=== PATIENT | female | born 1965 | race Caucasian/White ===

== ENCOUNTER 2018-07-11 12:21 | Outpatient (REF) | payer OTHER, SELFPAY ==
[2018-07-11 14:07] LABS: Abs Immature Grans 0.02 k/cumm (0.0-0.09); Absolute Basophil Count 0.03 k/cumm (0.0-0.2); Absolute Eosinophil Count 0.16 k/cumm (0.0-0.7); Absolute Lymphocyte Count 1.92 k/cumm (1.2-3.4); Absolute Monocyte Count 0.57 k/cumm (0.11-0.7); Absolute Neutrophil Count 5.02 k/cumm (1.2-6.7); Basophils % 0.4; Eosinophils % 2.1; HCT 41.5 % (36.0-46.0); HGB 13.4 g/dL (12.0-15.5); Immature Grans % 0.3; Lymphocytes % 24.9; Mean Corp. HGB Concentration 32.3 g/dL (32.0-36.0); Mean Corpuscular Hemoglobin 28.9 pg (27.0-33.0); Mean Corpuscular Volume 89.4 fL (80-95); Mean Platelet Volume 11.3 fL (8.0-11.0); Monocytes % 7.4; Neutrophils % 64.9; Platelet Count 235 x1000/uL (130-400); RBC 4.64 m/cumm (4.00-5.20); RBC Distribution Width 13.7 % (11.7-14.6); White Blood Cell Count 7.72 k/cumm (4.4-10.8)
[2018-07-11 14:14] LABS: Mono Screening Negative (Negative)
== END 2018-07-11 12:41 ==
LOC: NCHCN 12:21
PROVIDERS: PCP Family Medicine; Visit Provider Family Medicine
DX: R53.83 Other fatigue (principal); R05 Cough
CPT/HCPCS: 85025; 86308

== ENCOUNTER 2018-10-06 09:22 | Outpatient (CLI) | payer OTHER, SELFPAY ==
--- NOTE | 2018-10-06 16:47 | DI.RAD_ITS ---
SYMPTOM/DIAGNOSIS: COUGH, R05 PA AND LATERAL CHEST: The heart is normal in size. The lungs are clear. The mediastinal structures and pleura appear intact. CONCLUSION: Normal chest.
== END 2018-10-06 09:42 ==
PROVIDERS: PCP Family Medicine; Visit Provider Family Medicine
DX: R05 Cough (principal)
CPT/HCPCS: 71046

== ENCOUNTER 2018-10-06 16:31 | Outpatient (REF) | payer OTHER, SELFPAY ==
[2018-10-06 19:15] LABS: HCT 39.3 % (36.0-46.0); HGB 12.9 g/dL (12.0-15.5); Mean Corp. HGB Concentration 32.8 g/dL (32.0-36.0); Mean Corpuscular Hemoglobin 29.1 pg (27.0-33.0); Mean Corpuscular Volume 88.5 fL (80-95); Mean Platelet Volume 12.1 fL (8.0-11.0); Platelet Count 224 x1000/uL (130-400); RBC 4.44 m/cumm (4.00-5.20); RBC Distribution Width 13.3 % (11.7-14.6); White Blood Cell Count 8.21 k/cumm (4.4-10.8)
[2018-10-06 20:36] LABS: ALT 20 U/L (12-78); AST 15 U/L (15-37); Albumin 3.7 g/dL (3.4-5.0); Alkaline Phosphatase 75 U/L (46-116); Anion Gap 8.6 mmol/L (3-11); BUN 19 mg/dL (7-18); Bilirubin, Total 0.3 mg/dL (0.2-1.0); CO2 30.4 mmol/L (21.0-32.0); CREATININE 1.09 mg/dL (0.55-1.02); Chloride 101 mmol/L (98-107); Estimated GFR 52.31 (mL/min/1.73m2); Ferritin 68 ng/mL (8-388); Glucose 96 mg/dL (70-100); Potassium 3.8 mmol/L (3.5-5.1); Sodium 140 mmol/L (136-145); TSH (W/Ref FT4) 1.49 uIU/mL (0.358-3.74); Total Protein 7.1 g/dL (6.4-8.2); Vitamin B12 588 pg/mL (193-986)
== END 2018-10-06 16:51 ==
LOC: NCHCN 16:31
PROVIDERS: PCP Family Medicine; Visit Provider Family Medicine
DX: R53.83 Other fatigue (principal); Z00.00 Encounter for general adult medical examination without abnormal findings
CPT/HCPCS: 80053; 85027; 82607; 82728; 84443

== ENCOUNTER 2020-01-01 16:41 | Outpatient (REF) | payer OTHER, SELFPAY ==
[2020-01-01 18:14] LABS: Anion Gap 7.3 mmol/L (3-11); BUN 24 mg/dL (7-18); CO2 30.7 mmol/L (21.0-32.0); CREATININE 1.08 mg/dL (0.55-1.02); Chloride 101 mmol/L (98-107); Estimated GFR 52.67 (mL/min/1.73m2); Glucose 95 mg/dL (74-106); Potassium 4.1 mmol/L (3.5-5.1); Sodium 139 mmol/L (136-145)
== END 2020-01-01 17:01 ==
LOC: NCHCN 16:41
PROVIDERS: PCP Family Medicine; Visit Provider Family Medicine
DX: N18.3 Chronic kidney disease, stage 3 (moderate) (principal)
CPT/HCPCS: 80048

== ENCOUNTER 2020-01-26 08:11 | Outpatient (CLI) | payer OTHER, SELFPAY ==
--- NOTE | 2020-01-26 | DI.MAMMO_ITS ---
EXAM: MAMMO SCREENING CLINICAL HISTORY: SCREENING, [facility] CARE,Z00.00 TECHNIQUE: Mammograms were interpreted according to the usual protocol including computer analysis w [email or web address] system, tomosynthesis and C-view imaging. COMPARISON: FINDINGS: Breasts are of moderate density with fairly symmetrical distribution of fibroglandular tissue. No do minant mass or clumped microcalcification is seen. There is a nodular radiodensity of the medial ret roareolar left breast, unchanged from previous studies including October 2017. IMPRESSION: No specific evidence of malignancy at this time. Routine screening examinations are suggested yearly intervals in this age group according to the ACS ACR guidelines. BI-RADS Category 1 - Negative Breast Density - Category B - Scattered areas of fibroglandular density
== END 2020-01-26 08:31 ==
PROVIDERS: PCP Family Medicine; Visit Provider Family Medicine
DX: Z00.00 Encounter for general adult medical examination without abnormal findings (principal); Z12.31 Encounter for screening mammogram for malignant neoplasm of breast
CPT/HCPCS: 77063; 77067

== ENCOUNTER 2021-01-02 16:55 | Outpatient (REF) | payer OTHER, SELFPAY ==
--- NOTE | 2021-01-02 16:00 | PAPFT_PTH ---
PATIENT: Layla Isaac LOC: [facility]#:[id number] AGE/SX: 55/F ROOM: RE01/02/[address]: Beth Villegas : 1965 BED: DIS: 01/02/2021 SPEC #: [id number] RECD: 01/03/21 13:10 STATUS: MEL KUMAR #: [id number] MAVERICK: 01/02/21 16:[address]: Beth Villegas DEPT: [facility] Cytology RECD BY: Fabienne Dalton Tissues: 1 - CX/ENDOCX FOR PAP SMEARS Procedures: PAP THIN PREP/UVM Screening HPV DNA PROBE Comments: [id number]
[2021-01-02 20:36] LABS: BUN 22 mg/dL (7-18); CREATININE 1.1 mg/dL (0.55-1.02); Calcium 9.1 mg/dL (8.5-10.1); Chloride 103 mmol/L (98-107); Estimated GFR 51.38 (mL/min/1.73m2); Glucose 100 mg/dL (74-106); Potassium 4.3 mmol/L (3.5-5.1); Sodium 141 mmol/L (136-145)
== END 2021-01-02 16:56 | disposition home or self-care (01) ==
LOC: NCHCN 16:55
PROVIDERS: PCP Family Medicine; Visit Provider Family Medicine
DX: N18.30 Chronic kidney disease, stage 3 unspecified (principal); Z00.00 Encounter for general adult medical examination without abnormal findings; Z12.4 Encounter for screening for malignant neoplasm of cervix; Z11.51 Encounter for screening for human papillomavirus (HPV); Z01.419 Encounter for gynecological examination (general) (routine) without abnormal findings
CPT/HCPCS: 80048; 88142; 87624

== ENCOUNTER 2021-02-27 15:42 | Outpatient (CLI) | payer OTHER, SELFPAY ==
--- NOTE | 2021-02-27 15:15 | DI.RAD_ITS ---
Exam(s) XR ELBOW RT LIMITED EXAM: XR ELBOW RT LIMITED CLINICAL HISTORY: right elbow pain. TECHNIQUE: 2D digital imaging was performed. COMPARISON: No exams were available for comparison FINDINGS: There is no evidence of fracture or elbow joint effusion and no swelling of the olecranon bursa. The re is some soft tissue swelling dorsally in the proximal forearm but no fractures evident. Radial he ad appears unremarkable as does the capitellum and trochlea. Epicondyles appear unremarkable. Bone density normal. IMPRESSION: DATA REPOSITORY: RADIATION DOSE DELIVERED:
== END 2021-02-27 15:43 | disposition home or self-care (01) ==
LOC: DIORS 15:42
PROVIDERS: PCP Family Medicine; Referring Provider Family Medicine; Visit Provider Physician Assistant
DX: M25.521 Pain in right elbow (principal); M79.89 Other specified soft tissue disorders
CPT/HCPCS: 73070

== ENCOUNTER 2021-08-23 10:38 | Outpatient (REF) | payer BC, SELFPAY ==
[2021-08-23 14:37] LABS: HGB 13.2 g/dL (11.2-15.7); MCH 28.4 pg (27.0-33.0); MCHC 31.4 % (32.0-36.0); MCV 90.5 fL (80-95); Platelet Count 244 10^3/uL (130-400); RBC 4.64 10^6/uL (3.93-5.22); RDW 13.2 % (11.7-14.6); RDW-SD 43.3 fL; WBC 7.27 10^3/uL (4.4-10.8)
[2021-08-23 15:19] LABS: ALT 19 U/L (14-59); AST 15 U/L (15-37); Albumin 3.8 g/dL (3.4-5.0); Alkaline Phosphatase 78 U/L (46-116); BUN 17 mg/dL (7-18); Bilirubin, Total 0.3 mg/dL (0.2-1.0); Calcium 8.9 mg/dL (8.5-10.1); Chloride 104 mmol/L (98-107); Estimated GFR 57.15 (mL/min/1.73m2); Glucose 95 mg/dL (74-106); Potassium 4.2 mmol/L (3.5-5.1); Sodium 142 mmol/L (136-145); TSH (W/Ref FT4) 0.99 uIU/mL (0.36-3.74); Total Protein 7.2 g/dL (6.4-8.2)
== END 2021-08-23 10:39 | disposition home or self-care (01) ==
LOC: NCHCN 10:38
PROVIDERS: PCP Family Medicine; Visit Provider Family Medicine
DX: R53.83 Other fatigue (principal)
CPT/HCPCS: 80053; 85027; 84443

== ENCOUNTER 2021-09-12 00:14 | Outpatient (CLI) | payer BC, SELFPAY ==
--- NOTE | 2021-09-12 07:30 | DI.US_ITS ---
APPROVED REPORT EXAM: Comprehensive 2D, Doppler, and color-flow Echocardiogram Patient Location: Out-Patient Machine Joint Cutter: Inocencia Amado RDCS (AE) Indications: VO, Chronic Cough Other Information Study Quality: Good Conclusion Normal left ventricular wall thickness and chamber size. Estimated ejection fraction is 60%. Wall m otion is normal Normal right ventricular size and systolic function Both atria are normal in size There is no structural or hemodynamically significant valvular disease Estimated right ventricular systolic pressure is 39 mmHg Wall motion Left Ventricle The left ventricle is normal size. The left ventricular systolic function is normal. The left ventric ular ejection fraction is within the normal range. There is normal left ventricular wall thickness. T here is normal LV segmental wall motion. There is no ventricular septal defect visualized. LVEF is 60 %. Right Ventricle The right ventricle is normal size. The right ventricular systolic function is normal. The RVSP is 39 .4mmHg. Atria The left atrium size is normal. The right atrium size is normal. The interatrial septum is intact wit h no evidence for an atrial septal defect. Aortic Valve The aortic valve is normal in structure. There is no aortic valvular stenosis. No aortic regurgitatio n is present. Mitral Valve The mitral valve is normal in structure. No evidence of mitral valve stenosis. Trace mitral regurgita tion. Tricuspid Valve The tricuspid valve is normal in structure. There is no tricuspid valve stenosis. Trace tricuspid reg urgitation. Pulmonic Valve The pulmonary valve is normal in structure. There is no pulmonic valvular stenosis. There is no pulmo josh valvular regurgitation. Great Vessels The aortic root is normal in size. The ascending aorta is normal in size. Aortic arch is not well vis ualized. IVC is normal in size and collapses >50% with inspiration. Pericardium There is no pericardial effusion. 2D Dimensions IVSD d PLAX 0.93 cm F: 0.6-1.0 LV Vol A2C d MOD 90.6 mL LVPW d PLAX 0.96 cm F: 0.6 - 1.0 LV Vol A4C d MOD 99.7 mL LVID d PLAX 4.36 cm F: 3.8 - 5.2 LA vol/ BSA A2C s A-L 28.1 mL/m2 LVDs 3.05 cm F: 2.2 - 3.5 LA vol/ BSA A4C s A-L 25.9 mL/m2 Ao Root d 2.69 cm F: 2.7 - 3.3 LA Vol/ BSA Biplane s A-L 27.8 mL/m2 RA Area A4C 16.35 cm2 LA Area A4C s MOD 18.05 cm2 RA Vol/ BSA A4C s A-L 24.2 mL/m2 LA Area A2C s MOD 18.25 cm2 Ao Asc Diam d 3.27 cm F: 2.3 - 3.1 LV EF A4C MOD 60.5 % LV EF Teichholz 57.5 % LV EF A2C MOD 60.0 % LVEF (Goss's) 61.15 % F: 54 - 74 LV EF Biplane MOD 61.1 % LV Volume 73.68 mL F: 46 - 106 SV 60.06 mL LV Volume Index 36.84 mL/m2 F: 29 - 61 SV Index 30.04 mL/m2 LV Vol Biplane MOD 98.2 mL FS 29.95 % M-Mode TAPSE 2.41 cm (M/F) >1.7 LV Diastology MV E' medial 0.091 (>0.07 m/s) E/A Ratio 0.7 LV E/e MED 7.70 (<14) MV E Vmax 0.70 (0.4-1.3 m/s) MV E' lateral 0.103 (>0.1 m/s) MV A Vmax 0.95 (0.4-1.3 m/s) LV E/e LAT 6.85 (<14) MV E/A Ratio 0.72 MV E/E' medial 7.74 MV E/E' lateral 6.86 Aortic Valve LVOT Area 3.03 cm2 AoV Area Vmax 2.33 cm2 LVOT Vmax 0.98 m/s AoV Area/ BSA (Vmax) 1.17 cm2/m2 LVOT Mean Tino. 0.69 m/s JUDE Mean Tino. 2.14 cm2 LVOT Peak Grad 3.8 mmHg JUDE Mean Tino. Index 1.07 cm2/m2 LVOT Mean Grad 2.1 mmHg LVOT VTI 0.214 m LVOT Diam s 1.95 cm AoV Vmax 1.27 m/s Velocity Ratio 0.77 AoV Mean Tino. 0.98 m/s AoV Peak Grad 6.5 mmHg LVOT SV 64.92 mL AoV Mean Grad 4.1 mmHg AoV VTI 0.296 m AoV Area VTI 2.20 cm2 AoV Area/ BSA (VTI) 1.10 cm/m2 Mitral Valve MV DT 228 (160-240 msec) MV PHT 66 msec MV Area PHT 3.33 cm2 MV VTI 0.236 m MV Area VTI 2.76 (4.0-6.0 cm2) Pulmonary Valve PV Vmax 0.81 (0.5-1.5 m/s) RVOT Peak Gr. 1.38 mmHg PV Peak Grad 2.7 mmHg RVOT Mean Gr. 0.80 mmHg PV Mean Grad 1.5 mmHg RVOT VTI 0.137 m PV VTI 0.184 m RVOT Vmax 0.59 m/s Tricuspid Valve TR Peak Grad 36.3 mmHg TR Vmax 3.01 m/s RA Pressure 3.00 mmHg RVSP (TR) 39.4 mmHg
--- NOTE | 2021-09-12 08:30 | DI.RAD_ITS ---
Exam(s) XR CHEST 2V PA LATERAL EXAM: XR CHEST 2V PA LATERAL CLINICAL HISTORY: VO, R06.09; CHRONIC COUGH, R05.3 TECHNIQUE: 2D digital imaging was performed of the chest. Two images were obtained. PA and lateral views were obtained. COMPARISON: CR XR CHEST 2V PA LATERAL from 10/06/2018 FINDINGS: MEDIASTINUM: Normal. HEART: Normal. PULMONARY VASCULATURE: Normal. LUNGS: Clear. PLEURAL SPACE: No pleural effusion or pneumothorax. BONE:Within normal limits for the patient's age. OTHER FINDINGS:Normal. IMPRESSION: No acute pulmonary findings. DATA REPOSITORY: RADIATION DOSE DELIVERED:
== END 2021-09-12 00:34 ==
PROVIDERS: PCP Family Medicine; Visit Provider Family Medicine
DX: R06.02 Shortness of breath (principal); R05.3 Chronic cough
CPT/HCPCS: 71046; 93306

== ENCOUNTER 2021-09-22 04:44 | Outpatient (CLI) | payer BC, SELFPAY ==
[2021-09-22] MEDS: Albuterol HFA 18 GM 200 PUFF INH IH (09:18)
[2021-09-22] MEDS: Inhaler, Assist Device 1 EACH MC (09:18)
== END 2021-09-22 04:45 | disposition home or self-care (01) ==
LOC: RT 04:44
PROVIDERS: PCP Family Medicine; Visit Provider Family Medicine
DX: R06.09 Other forms of dyspnea (principal); R05.3 Chronic cough; Z82.5 Family history of asthma and other chronic lower respiratory diseases; Z77.22 Contact with and (suspected) exposure to environmental tobacco smoke (acute) (chronic); Z57.2 Occupational exposure to dust
CPT/HCPCS: 94060; 94726; 94729

== ENCOUNTER 2021-09-27 16:57 | Outpatient (REF) | payer BC, SELFPAY ==
[2021-09-27 15:14] LABS: Calculated LDL 141 mg/dL (<100); Cholesterol 227 mg/dL (<200); HDL Cholesterol 47 mg/dL (40-60); Triglyceride 195 mg/dL (<150)
[2021-09-28 09:59] LABS: HIV-1/2 Ag & Ab Screen Negative (Negative)
== END 2021-09-27 16:58 | disposition home or self-care (01) ==
LOC: NCHCN 16:57
PROVIDERS: PCP Family Medicine; Visit Provider Family Medicine
DX: Z00.00 Encounter for general adult medical examination without abnormal findings (principal); Z13.220 Encounter for screening for lipoid disorders
CPT/HCPCS: 80061; 87389

== ENCOUNTER → 2021-12-04 01:57 | Outpatient (CLI) | payer BC, SELFPAY ==
--- NOTE | 2021-12-04 14:45 | DI.MRI_ITS ---
Exam(s) MR BRAIN WO/W EXAM: MR BRAIN WO/W CLINICAL HISTORY: PARESTHESIA, R20.9; FAN, R51.9, LT FACE NUMBNESS/TINGLING. TECHNIQUE: Multiplanar multisequence MRI of the brain was performed. CONTRAST MATERIAL: IV Contrast: ML of Dotarem contrast administered. COMPARISON: No exams were available for comparison FINDINGS: VENTRICLES AND EXTRA AXIAL SPACES: Normal in size and morphology for the patient's age. HEMORRHAGE: None. CEREBRAL PARENCHYMA: No focus of restricted diffusion to suggest acute infarct. No space-occupying le estrella identified. MIDLINE SHIFT: None. BRAINSTEM/CEREBELLUM: Normal. ENHANCEMENT: No suspicious enhancement identified. VISUALIZED PARANASAL SINUSES/MASTOIDS: Clear. OTHER FINDINGS: None. IMPRESSION: Unremarkable MRI of the brain. DATA REPOSITORY:
[2021-12-04] MEDS: Gadoterate meglumine 20 ML VIAL 19 ML IVP (15:27)
[2021-12-04] MEDS: Normal Saline Flush 10 ML SYR IVP (15:27)
== END ==
PROVIDERS: PCP Family Medicine; Visit Provider Family Medicine
DX: R51.9 Headache, unspecified (principal); R20.2 Paresthesia of skin; R20.0 Anesthesia of skin
CPT/HCPCS: 70553

== ENCOUNTER 2022-05-25 14:07 | Outpatient (REF) | payer BC, SELFPAY ==
[2022-05-25 16:49] LABS: Microalb ug/mg Crea 4.1 ug/mg Cr
== END 2022-05-25 14:08 | disposition home or self-care (01) ==
LOC: NCHCN 14:07
PROVIDERS: PCP Family Medicine; Visit Provider Family Medicine
DX: N18.30 Chronic kidney disease, stage 3 unspecified (principal)
CPT/HCPCS: 82043; 82570

== ENCOUNTER → 2022-06-08 00:23 | Outpatient (CLI) | payer BC, SELFPAY ==
--- NOTE | 2022-06-08 | DI.MAMMO_ITS ---
Exam(s) MAMMO SCREENING EXAM: MAMMO SCREENING CLINICAL HISTORY: SCREENING, Z12.31 TECHNIQUE: Mammograms were interpreted according to the usual protocol including computer analysis w [employer] system, tomosynthesis and C-view imaging. COMPARISON: FINDINGS: The breasts are of moderate density with fairly symmetrical distribution of fibroglandular tissue. T here is an area of upper inner quadrant nodularity of the left breast which is unchanged in appearanc e in comparison with multiple prior examinations dating back to August 2012. No new mass or clumpe d microcalcification identified in either breast. IMPRESSION: No specific evidence of malignancy at this time. Routine screening examinations are suggested at yea rly intervals in this age group according to the ACS ACR guidelines. BI-RADS Category 1 - Negative Breast Density - Category B - Scattered areas of fibroglandular density
== END ==
PROVIDERS: PCP Family Medicine; Visit Provider Family Medicine
DX: Z12.31 Encounter for screening mammogram for malignant neoplasm of breast (principal)
CPT/HCPCS: 77063; 77067

== ENCOUNTER 2023-01-11 15:36 | Outpatient (REF) | payer BC, SELFPAY ==
[2023-01-11 15:49] LABS: HGB 14.1 g/dL (11.2-15.7); MCH 29.1 pg (27.0-33.0); MCV 91 fL (80-95); MPV 12.4 fL (8.0-11.0); Platelet Count 211 10^3/uL (130-400); RBC 4.85 10^6/uL (3.93-5.22); RDW 12.8 % (11.7-14.6); RDW-SD 41.8 fL; WBC 6.93 10^3/uL (4.4-10.8)
[2023-01-11 16:07] LABS: ALT 17 U/L (14-59); AST 14 U/L (15-37); Albumin 3.8 g/dL (3.4-5.0); Alkaline Phosphatase 73 U/L (46-116); BUN 26 mg/dL (7-18); Bilirubin, Total 0.4 mg/dL (0.2-1.0); CREATININE 1.1 mg/dL (0.55-1.02); Calcium 9.2 mg/dL (8.5-10.1); Chloride 101 mmol/L (98-107); Estimated GFR 58.24 (mL/min/1.73m2); Glucose 108 mg/dL (74-106); Potassium 4.3 mmol/L (3.5-5.1); Sodium 138 mmol/L (136-145); Total Protein 7.5 g/dL (6.4-8.2)
== END 2023-01-11 15:37 | disposition home or self-care (01) ==
LOC: NCHCN 15:36
PROVIDERS: PCP Family Medicine; Visit Provider Family Medicine
DX: Z00.00 Encounter for general adult medical examination without abnormal findings (principal)
CPT/HCPCS: 80053; 85027

== ENCOUNTER → 2023-10-09 01:12 | Outpatient (CLI) | payer OTHER, SELFPAY ==
--- NOTE | 2023-10-09 | DI.RAD_ITS ---
Exam(s) XR HIP LT COMPLETE AP PELVIS EXAM: XR HIP LT COMPLETE AP PELVIS CLINICAL HISTORY: LT HIP PAIN, M25.552. TECHNIQUE: 2D digital imaging was performed. Two views. COMPARISON: No exams were available for comparison FINDINGS: BONES: No acute fracture is present. No bony destructive lesion is seen. JOINTS: No dislocation present. The hip joint spaces are maintained. No significant periarticular sp urring. Mild degenerative changes seen at the AC joints. Pubic symphysis is unremarkable. SOFT TISSUE: Normal. IMPRESSION: No acute abnormality. DATA REPOSITORY: RADIATION DOSE DELIVERED:
== END ==
PROVIDERS: PCP Family Medicine; Visit Provider Family Medicine
DX: M25.552 Pain in left hip (principal)
CPT/HCPCS: 73502

== ENCOUNTER 2024-03-09 12:16 | Outpatient (REF) | payer OTHER, SELFPAY ==
--- OUTSIDE RECORDS SUMMARY | 2024-03-09 12:24 | XMS_ITS | Encounter Summary ---
Author Organization [facility] Address [address] [place] [address] Care Team Providers Care Tele Marketing Executive Name Role Phone Unavailable Primary Care Provider Unavailabl e Encounter Details Date Type Department Care Team (Late st Contact Info) Description 07/22/2006 Results Only [facility] - Maple conversion [address] [place] [address] Beth Becker MD [address] [address] Social History Tobacco Use Types Packs/Day Years Used Date Smoking Tobacco: Never Assessed Sex and Gender Information Value Date Recorded Sex Assigned at Not on file Gender Identity Not on file Sexual Orientation Not on file documented as of this encounter Plan of Treatment Not on file documented as of this encounter Procedures Procedure Name Priority Date/Time Associated Diagnosis Comments CYTOPATHOLOGY Routine 07/22/2006 0:00 EST documented in this encounter Results * CYTOPATHOLOGY (07/22/2006 0:00 EST) Pathology Report: CYTOPATHOLOGY REPORT Reports generated via electronic interface contain original data; however they are lacking the format of the original report. Caution should be taken when reading/interpreti ng unformatted reports. Name: ? LAYLA ISAAC ? Accession #: ? [id number] : ? 1965 (Age: 41) ??F ?Collect Date: ? 07/22/2006 Location: ? [facility] ? Receive Date: ? 07/23/2006 Provider: ?BETH BECKER MD Copy to: ? Specimen/Source: ?ThinPrep Pap Test, Cervix/Endocervix, processed on Smart [employer] ThinPrep Imaging System, with manual evaluation Last Menstrual Period: ? 07/14/06 Hormonal/Contracep tive Status: ? Yes: Hx of trinessa Other: ? HPVA - HPV testing requested if ASC-US on the current ThinPrep Pap test. ? SPECIMEN ADEQUACY ? Satisfactory for Evaluation - transformation zone component present GENERAL CATEGORIZATION ? Negative for Intraepithelial Lesion or Malignancy ? Document reviewed and electronically signed by: ? MOON Watters(ASCP) ? Report Date: ??07/24/2006 11:55 End of Report PRABHU CHURCH 07/22/2006 07/23/2006 Beth Becker MD PATHOLOGY ORDERABLES Performing Organization Address City/State/[facility] Co de Phone Number PRABHU CHURCH [address] [place] [address] documented in this encounter Visit Diagnoses Not on filedocumented in this encounter
--- OUTSIDE RECORDS SUMMARY | 2024-03-09 12:24 | XMS_ITS | Encounter Summary ---
[place] [address] Care Team Providers Care Refinery Process Engineer Name Role Phone Beth Villegas MD Primary Care Provider [phone] Reason for Referral * Allergy Testing (Routine) - Closed Specialty Diagnoses / Procedures Referred By Contac t Referred To Contact Allergy Diagnoses Allergic rhinitis, unspecified seasonality, unspecified trigger Chronic cough Beth Villegas MD [address] [place] [address] [facility] Allergy [address] [place] [address] Referral ID Status Reason Start Date Expiration Date V isits Requested Visits Authorized [id number] Closed Consult, Test & Treat PCP Updated and/or Approved 08/23/2021 02/20/2022 6 6 Encounter Details Date Type Department Care Team (Latest Contact Info) Description 08/28/2021 [place] [address] Beth Villegas MD [address] [place] [address] Allergic rhinitis, unspecified seasonality, unspecified trigger; Chronic cough Social History Tobacco Use Types Packs/Day Years Used Date Smoking Tobacco: Never Smokeless Tobacco: Never Alcohol Use Standard Drinks/Week Comments Yes 0 (1 standard drink = 0.6 oz pur e alcohol) occasionally Sex and Gender Information Value Date Recorded Sex Assigned at Not on file Gender Identity Not on file Sexual Orientation Not on file documented as of this encounter Plan of Treatment Scheduled Referrals Name Type Priority Associated Diagnoses Orde r Schedule Referral to Allergy Outpatient Referral Routine Allergic Rhinitis, Unspecified Seasonality, Unspecified Trigger Chronic cough Ordered: 08/28/2021 documented as of this encounter Visit Diagnoses Diagnosis Allergic rhinitis, unspecified seasonality, unspecified trigger Chronic cough Cough documented in this encounter Care Teams Refinery Process Engineer Relationship Specialty Start Date End Date Beth Villegas MD [address] [place] [address] PCP - General 06/06/10 documented as of this encounter
--- OUTSIDE RECORDS SUMMARY | 2024-03-09 12:24 | XMS_ITS | Encounter Summary ---
Author Organization [facility] [place] [address] Care Team Providers Care Plant Engineering Supervisor Name Role Phone Beth Villegas MD Primary Care Provider [phone] Reason for Visit * Reason Comments Allergy Testing * Allergy Testing (Routine) - Closed Specialty Diagnoses / Procedures Referred By Contac t Referred To Contact Allergy Diagnoses Allergic rhinitis, unspecified seasonality, unspecified trigger Chronic cough Beth Villegas MD [address] [place] [address] [address] [facility] [address] [place] [id number] Referral ID Status Reason Start Date Expiration Date V isits Requested Visits Authorized [id number] Closed Consult, Test & Treat PCP Updated and/or Approved 08/23/2021 02/20/2022 6 6 Encounter Details Date Type Department Care Team (Late st Contact Info) Description 01/22/2022 10:00 AM EDT [place] [address] Linda Noonan MD [facility] [address] [facility] [place] [address] Chronic rhinitis Social History Tobacco Use Types Packs/Day Years Used Date Smoking Tobacco: Never Smokeless Tobacco: Never Alcohol Use Standard Drinks/Week Comments Yes 0 (1 standard drink = 0.6 oz pur e alcohol) occasionally Sex and Gender Information Value Date Recorded Sex Assigned at Not on file Gender Identity Not on file Sexual Orientation Not on file documented as of this encounter Last Filed Vital Signs Vital Sign Reading Time Taken Comments Blood Pressure 126/86 01/22/2022 9:49 AM EDT Pulse 83 01/22/2022 9:49 AM EDT Temperature - - Respiratory Rate - - Oxygen Saturation 97% 01/22/2022 9:49 AM EDT Inhaled Oxygen Concentration - - Weight 96.6 kg (213 lb) 01/22/2022 9:49 AM EDT Height - - Body Mass Index 35.45 02/16/2015 3:54 PM EDT documented in this encounter Progress Notes * Linda Noonan MD - 01/22/2022 10:00 AM EDT CC: Allergies? HPI: Layla Isaac is a 56 y.o. female with a PMH of arthritis, fibromyalgia presenting for evaluation of allergies at the request of Beth Villegas. 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 Nothing seems to work better than anything else. Meds tried: Fluticasone - feels good when first sprays at night but still wakes up congested the next am nasonex claritin Zyrtec Mckenzie singulair Never tried azelastine or ipratropium spray ROS is per HPI all others reviewed and are negative. 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 Seborrheic keratosis L82.1 ??? Lumbar radiculopathy M54.16 ??? Obesity E66.9 ??? Nevus D22.9 Past Medical History: Diagnosis Date ??? Depression ??? Fibromyalgia ??? Hearing loss Past Surgical History: Procedure Laterality Date ??? BREAST LUMPECTOMY ??? ketoconazole (NIZORAL) 2 % Shampoo ??? Myrbetriq 25 mg Tablet Sustained Release 24 hr ??? venlafaxine (EFFEXOR-XR) 150 mg Capsule, Sust. Release 24 hr ??? fish oil-omega-3 fatty acids 1,000 mg Capsule ??? Magnesium 250 mg Tablet ??? MV,CA,MIN/FA/HERBAL NO.158 (ESTROVEN ENERGY ORAL) ??? FERROUS FUMARATE (IRON ORAL) ??? NAPROXEN ORAL ??? naratriptan (AMERGE) 2.5 mg tablet ??? omeprazole (PRILOSEC) 20 mg capsule ??? fluocinolone acetonide (Synalar) 0.01 % Solution ??? LORazepam (Ativan) 0.5 mg Tablet Allergies Allergen Reactions ??? Allergenic Extracts Dust ??? Vicodin [Hydrocodone-Acetaminophen] Itching Family History Problem Relation Age of Onset ??? Allergic Rhinitis Maternal Grandmother ??? Diabetes Paternal Grandfather ??? Heart Disease Other ??? Diabetes Other Social History Socioeconomic History ??? Marital status: Spouse name: Not on file ??? Number of children: Not on file ??? Years of education: Not on file ??? Highest education level: Not on file Occupational History ??? Not on file Tobacco Use ??? Smoking status: Never Smoker ??? Smokeless tobacco: Never Used Vaping Use ??? Vaping Use: Never used Substance and Sexual Activity ??? Alcohol use: Yes Comment: occasionally ??? Drug use: No ??? Sexual activity: Not on file Comment: deferred Other Topics Concern ??? Not on file Social History Narrative ??? Not on file Social Determinants of Health Financial Resource Strain: Not on file Food Insecurity: Not on file Transportation Needs: Not on file Physical Activity: Not on file Housing Stability: Not on file PHYSICAL EXAM: BP 126/86 Pulse 83 Wt 96.6 kg (213 lb) SpO2 97% BMI 35.45 kg/m?? Gen: awake, alert, no acute distress Head: normocephalic, atraumatic EYES: Conjunctiva not injected or icteric. No discharge. No eyelid edema. ENT: Tympanic membranes clear, no lesions, erythema, or drainage. Normal external ear canals. Nasalpassages show normal mucosa, normal turbinates bilaterally, no lesions. OP mucosa well hydrated, clear without erythema or cobblestoning. No lesions or exudates. No visible OP edema. NECK: supple, symmetric, no masses, trachea midline LYMPH: no submandibular, cervical, or supraclavicular LAD CVS: RRR, no m/r/g LUNGS: CTAB, no wheezing or rales, breathing unlabored ABD: soft, non-tender, non-distended, bowel sounds present SKIN: no rashes, normal color, no mottling EXTREMITIES: warm and well-perfused, normal bulk, symmetric ROM, no edema NEURO: EOMI, no dysarthria PSYCH: normal grooming, appropriate mood and affect, normal volume/quantity/tone of speech, normal thought process and content ASSESSMENT AND PLAN: 56 y.o. female with chronic rhinitis leading to PND and cough. Briefly discussed Ddx includes allergies and also vasomotor rhinitis, which I explained can mimic allergies but is thought to be due to abnormal neural firing in the nose and less responsive to medications. Chronic rhinitis: Patient would benefit from skin testing to determine if allergic triggers are present. Skin testingallows us to confirm the diagnosis. There are other conditions, such as vasomotor rhinitis, that can mimic allergies and, if present, would change treatment options. Positive allergy testing would also allow us to provide guidance on specific allergen avoidance measures for the patient's triggers. There are also multiple desensitization options for patients with confirmed environmental allergies.Allergen immunotherapy injections are one option to provide desensitization for a wide range of environmental allergies. Sublingual therapies also exist for dust mite, ragweed, and bryan grass. The patient may be eligible for desensitization therapy depending on the allergy test results. Finally,allergy testing can provide information on whether or not biologic therapies are an option depending on the patient's medical history. We reviewed that with allergy testing, droplets of diluted allergen are scratched against the skin and are allowed to sit for 15 minutes. After this time, the size of the wheal or flare response is measured to determine if the patient has an allergy. Patient was counseled that if they are very allergic, the wheal and flare response can be quite large and may be irritating or uncomfortable, but after wiping off the test, this usually improves within 45 minutes to an hour. Steroid creams can alsobe placed on the skin to help control exuberant responses if needed. Patient will return for allergy testing off antihistamines for 7 days. Linda Noonan MD Orders Placed This Encounter Procedures ??? Allergy Skin Test documented in this encounter Plan of Treatment Not on file documented as of this encounter Visit Diagnoses Diagnosis Chronic rhinitis documented in this encounter Care Teams Plant Engineering Supervisor Relationship Specialty Start Date End Date Beth Villegas MD [address] [place] [address] [facility] [address] [place] [address] PCP - General 06/06/10 documented as of this encounter
--- OUTSIDE RECORDS SUMMARY | 2024-03-09 12:24 | XMS_ITS | Encounter Summary ---
Author Organization [facility] Address [address] [place] [address] Care Team Providers Care Technology Analyst Name Role Phone Unavailable Primary Care Provider Unavailabl e Encounter Details Date Type Department Care Team (Late st Contact Info) Description 12/16/2001 Results Only [facility] - Maple conversion [address] [place] [address] Adele Gallagher, DALJIT [address] [address] Social History Tobacco Use Types [...] Priority Date/Time Associated Diagnosis Comments CYTOPATHOLOGY Routine 12/16/2001 0:00 EDT documented in this encounter Results * CYTOPATHOLOGY (12/16/2001 0:00 EDT) Pathology Report: CYTOPATHOLOGY REPORT Reports generated via electronic interface contain original data; however they are lacking the format of the original report. Caution should be taken when reading/interpreti ng unformatted reports. Name: ? LAYLA ISAAC ? Accession #: ? [id number] : ? 1965 (Age: 36) ??F ?Collect Date: ? 12/16/2001 Location: ? [facility] ? Receive Date: ? 12/18/2001 Provider: ?ADELE GALLAGHER NP Copy to: ? Specimen/Source: ?ThinPrep Pap Test, Cervix/Endocervix Last Menstrual Period: ? 12/08/01 ? SPECIMEN ADEQUACY ? Satisfactory for Evaluation - transformation zone component present GENERAL CATEGORIZATION ? Negative for Intraepithelial Lesion or Malignancy ? Document reviewed and electronically signed by: ? Keagan Agarwal, MOON(ASCP) ? Report Date: ??12/19/2001 10:24 End of Report PRABHU CHURCH 12/16/2001 12/18/2001 Adele Gallagher NP PATHOLOGY ORDERABLES PR[facility] CHURCH [address] [place] [address] documented in this encounter Visit Diagnoses Not on filedocumented in this encounter
--- OUTSIDE RECORDS SUMMARY | 2024-03-09 12:24 | XMS_ITS | Encounter Summary ---
[place] [address] Care Team Providers Care Filler Shredder Helper Name Role Phone Beth Villegas MD Primary Care Provider [phone] Encounter Details Date Type Department Care Team (Late st Contact Info) Description 04/04/2012 [place] [address] Yanci Diaz, RN Social History Tobacco Use Types Packs/Day Years [...] documented as of this encounter Visit Diagnoses Not on filedocumented in this encounter Care Teams Filler Shredder Helper Relationship Specialty Start Date End Date Beth Villegas MD [facility] [address] [place] [address] PCP - General 06/06/10 documented as of this encounter
--- OUTSIDE RECORDS SUMMARY | 2024-03-09 12:24 | XMS_ITS | Encounter Summary ---
Author Organization [facility] Address [facility] [place] [address] Care Team Providers Care Stucco Worker Name Role Phone Beth Becker MD Primary Care Provider [phone] Reason for Visit * Reason Comments Other ? Otosclerosis Encounter Details Date Type Department Care Team (Latest Contact Info) Description 02/16/2015 3:45 PM EDT Office [place] [address] Damon Cox MD [facility] 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 of contralateral ear Discharge Disposition: Home Social History Tobacco Use Types Packs/Day Years [...] Sign Reading Time Taken Comments Blood Pressure 114/75 02/16/2015 3:54 PM EDT Pulse 84 02/16/2015 3:54 PM EDT Temperature - - Respiratory Rate - - Oxygen Saturation - - Inhaled Oxygen Concentration - - Weight 79.4 kg (175 lb) 02/16/2015 3:54 PM EDT Height 165.1 cm (5' 5) 02/16/2015 3:54 PM EDT Body Mass Index 29.12 02/16/2015 3:54 PM EDT documented in this encounter Progress Notes * Damon Cox MD - 02/16/2015 4:33 PM EDT Otolaryngology Outpatient Consultation Referring Provider: Wilian Mart Primary Care Provider: BETH BECKER MD (General) Consulting Attending: DAMON COX MD Reason for Consult: I am seeing Layla Isaac at the request of Wilian Mart for the evaluation of hearing loss. I have reviewed the available records, interviewed and examined the patient. History of Present Illness: Layla Isaac is a 49 y.o. female with a 5 year history of progressively worsening hearing in the left ear. No history of head injury or noise exposure. No previous history of ear infections. There is no family history of hearing loss with the exception of her grandmother who had age-related loss of hearing. The patient denies vertigo but does experience occasional lightheaded episodes. She denies pain or drainage from the ear. She does report tinnitus which can be bothersome and seems to be more prevalent on the left side. Review of Systems: Constitutional, Visual, Pulmonary, Cardiac, GI, , Musculoskeletal, Cutaneous, Neurological and Psychological systems are reviewed. Pertinent positives are recorded in the HPI, otherwise they are negative or noncontributory. Past Medical History /Problem List: Past Medical History Diagnosis Date ??? Depression ??? Fibromyalgia ??? Hearing loss Patient Active Problem List Diagnosis Date Noted ??? Nevus 12/29/2012 ??? Lumbar radiculopathy 04/04/2012 ??? Obesity 04/04/2012 ??? Seborrheic keratosis 08/30/2011 Family History: Reviewed, pertinent positives listed in HPI, and other areas found to be noncontributory. Social History: Reviewed, pertinent positives listed in HPI, and other areas found to be noncontributory. Medications: Current outpatient prescriptions: hydroxychloroquine (PLAQUENIL) 200 mg Tablet, Take by mouth daily., Disp: , Rfl: ; fish oil-omega-3 fatty acids 1,000 mg Capsule, Take 2 g by mouth daily., Disp: , Rfl: ; Magnesium 250 mg Tablet, Take by mouth., Disp: , Rfl: ; BUPROPION HCL (WELLBUTRINORAL), Take 1 tablet by mouth daily., Disp: , Rfl: ; MV,CA,MIN/FA/HERBAL NO.158 (ESTROVEN ENERGY ORAL), Take 1 capsule by mouth daily., Disp: , Rfl: FERROUS FUMARATE (IRON ORAL), Take 2 tablets by mouth daily., Disp: , Rfl: ; NAPROXEN ORAL, Take 1-2 tablets by mouth as needed., Disp: , Rfl: ; naratriptan (AMERGE) 2.5 mg tablet, Take 2.5 mg by mouth as needed. Take one (1) tablet at onset of headache; if returns or does not resolve, may repeat after 4 hours; do not exceed five (5) mg in 24 hours. , Disp: , Rfl: ; omeprazole (PRILOSEC) 20 mg capsule, Take 20 mg by mouth daily., Disp: , Rfl: Allergies: Allergenic extracts and Vicodin Physical Exam: Vital signs: Filed Vitals: 02/16/15 1554 BP: 114/75 Pulse: 84 Height: 165.1 cm (5' 5) Weight: 79.379 kg (175 lb) Constitutional: Well developed, well nourished and well groomed. Communicates in a strong clear voice without stridor or hoarseness. Psychiatric: Responds appropriately to commands, alert, oriented. HENT: Ears: The ears are examined with operating microscope. The pinnas are well formed without lesions or masses. The ear canals are cleared of cerumen and found to be normal. The right tympanic membrane is translucent, normally mobile, no erythema. The left tympanic membrane is translucent, normally mobile, no erythema. Tuning forks: Cruz lateralizes to the left, Rinne is negative on the left at 512 Hz, positive on the right Face: Normal facies without scar or asymmetry. Nose: No evidence of mucopurulent drainage, mucosal lesions or polyps, septum midline. Oral Cavity: Tongue and palate with good mobility, no visible lesions or asymmetry. Neck: No masses or adenopathy, trachea midline, normal laryngeal crepitus preserved. Thyroid normalto palpation. Cutaneous: No suspicious lesions or rashes of the facial skin. Musculoskeletal: Normal facial motor function without asymmetry The following studies have been personally reviewed and summarized: Audiogram: Conductive hearing loss, left ear low and middle frequencies. Normal tympanograms Assessment/Recommendations: Layla Isaac is a 49 y.o. 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 I reviewed with the patient the anatomy of the ear and the interpretation of the audiogram indicating a conductive hearing loss. I indicated that this is consistent with otosclerosis. This is the build-up of new bone on the otic capsule adjacent to the stapes bone, decreasing its mobility. I discussed three options: 1. Continuing on without treatment. 2. Using a hearing aid. 3. Surgical treatment with a stapedotomy. I did indicate that the major advantage of a hearing aid is that it has no risk to the hearing and generally gives good results with this type of conductive loss. I emphasized that patients with conductive deafness secondary to otosclerosis can be successful hearing aid users. I went through the details of the stapedotomy procedure. I explained the following: approximately 80 to 85% of the time, the hearing is improved to within a 10 dB air bone gap and then illustrated this on the audiogram. About 15% of the time, the hearing improves, but to a lesser degree, and I illustrated that. About 2% of the time, the hearing gets worse, with a 1% chance of a total loss. I alsoindicated that when a hearing loss does occur, it is often accompanied by a distortion of sound andincreased tinnitus. I also outlined the risks of worsening tinnitus and post operative dizziness. Post operative taste disturbance due to chorda tympani nerve dysfunction was discussed. Also, the slight chance of facial paralysis or weakness, which if it did occur would be secondary to swelling of the nerve and thus expected to recover in time, was discussed. The postoperative restrictions including no heavy lifting or straining for one week, no nose blowing or forceful sneezing for one week, no airplane travel for two weeks and the need to keep the ear completely dry for up to 6 weeks was outlined. After hearing these options and the surgical discussion, the patient would like to think over her options and will get back in touch to schedule. 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
--- OUTSIDE RECORDS SUMMARY | 2024-03-09 12:24 | XMS_ITS | Encounter Summary ---
Author Organization [facility] Address [address] [place] [address] Care Team Providers Care Eyewear Manufacturing Supervisor Name Role Phone Unavailable Primary Care Provider Unavailabl e Encounter Details Date Type Department Care Team (Late st Contact Info) Description 05/11/2003 Results Only [facility] - [facility] [address] [place] [address] Shell Esteves MD [address] [place] [address] [place] [address] Social History Tobacco Use Types Packs/Day Years Used Date Smoking Tobacco: Never Assessed Sex and Gender Information Value Date Recorded Sex Assigned at Not on file Gender Identity Not on file Sexual Orientation Not on file documented as of this encounter Plan of Treatment Not on file documented as of this encounter Procedures Procedure Name Priority Date/Time Associated Diagnosis Comments CYTOPATHOLOGY Routine 05/11/2003 0:00 EST SURGICAL PATHOLOGY Routine 05/11/2003 0:00 EST documented in this encounter Results * SURGICAL PATHOLOGY (05/11/2003 0:00 EST) Pathology Report: SURGICAL PATHOLOGY REPORT Reports generated via electronic interface contain original data; however they are lacking the format of the original report. Caution should be taken when reading/interpreti ng unformatted reports. Name: ? LAYLA ISAAC ? Accession #: ? [id number] ? : ? 1965 (Age: 38) ??F ? Collect Date: ? 05/11/2003 ? Location: ? [facility] ? Receive Date: ? 05/11/2003 ? Provider: SHELL ESTEVES MD Copy to: PARAM BECKER MD ? Final Pathologic Diagnosis: ? Cervix, polyp, polypectomy: - Benign endocervical polyp. Document reviewed and electronically signed by: ZACHARIAH ROMO MD Report ??Date: 05/13/2003 17:35 By the signature above, the attending physician certifies that he/she has personally conducted a gross and/or microscopic examination of the described specimens and rendered or confirmed the above diagnosis. Specimen(s) Received: ? Polyp - cervix Clinical History: ? Cervical polyp Gross Description: ? Received in formalin labeled Isaac and cervix polyp is one soft tissue fragment which measures 1.6 x 0.8 x 0.5 cm. ??The surface is smooth and stewart to brown. Also received within the same container are multiple fragments of stewart mucinous material which measure in aggregate 0.5 x 0.3 x 0.2 cm. ??The large tissue fragment is bisected and submitted as (A1) and the small tissue fragments are submitted as (A2). ??(Dr. West-)/[facility] End of Report [facility] 05/11/2003 05/11/2003 15: 36 EST Shell Esteves MD PATHOLOGY ORDERABLES [facility] [address] [place] [address] * CYTOPATHOLOGY (05/11/2003 0:00 EST) Pathology Report: CYTOPATHOLOGY REPORT Reports generated via electronic interface contain original data; however they are lacking the format of the original report. Caution should be taken when reading/interpreti ng unformatted reports. Name: ? LAYLA ISAAC ? Accession #: ? [id number] : ? 1965 (Age: 38) ??F ?Collect Date: ? 05/11/2003 Location: ? [facility] ? Receive Date: ? 05/12/2003 Provider: ?SHELL ESTEVES MD Copy to: ?PARAM BECKER MD ? Specimen/Source: ?ThinPrep Pap Test, Cervix/Endocervix Last Menstrual Period: ? 04/18/03 ? SPECIMEN ADEQUACY ? Satisfactory for Evaluation - transformation zone component present GENERAL CATEGORIZATION ? Negative for Intraepithelial Lesion or Malignancy ? Document reviewed and electronically signed by: ? MOON Watters(ASCP) ? Report Date: ??05/17/2003 13:03 End of Report [facility] 05/11/2003 05/12/2003 Shell Esteves MD PATHOLOGY ORDERABLES [facility] [address] [place] [address] documented in this encounter Visit Diagnoses Not on filedocumented in this encounter
--- OUTSIDE RECORDS SUMMARY | 2024-03-09 12:24 | XMS_ITS | Encounter Summary ---
[place] [address] Care Team Providers Care Computer Operations Technician Name Role Phone Beth Villegas MD Primary Care Provider [phone] Reason for Referral * Consultation (Routine) - Closed Specialty Diagnoses / Procedures Referred By Contcourt t Referred To Contact Otolaryngology Diagnoses Chronic cough Vasomotor rhinitis Beth Villegas MD [address] [place] [address] [facility] [address] [place] [id number] Referral ID Status Reason Start Date Expiration Date V isits Requested Visits Authorized [id number] Closed Consult, Test & Treat PCP Updated and/or Approved 06/01/2022 06/01/2023 6 6 Encounter Details Date Type Department Care Team (Latest Contact Info) Description 06/01/2022 Transcribe Orders eDH Incoming Referrals [phone] Beth Villegas MD [address] [place] [address] Chronic cough; Vasomotor rhinitis Social History Tobacco Use Types Packs/Day [...] Associated Diagnoses Orde r Schedule Referral to ENT Outpatient Referral Routine Chronic cough Vasomotor rhinitis Ordered: 06/01/2022 documented as of this encounter Visit Diagnoses Diagnosis Chronic cough Cough Vasomotor rhinitis Allergic rhinitis, cause unspecified documented in this encounter Care Teams Computer Operations Technician Relationship Specialty Start Date End Date Beth Villegas MD [address] [place] [address] PCP - General 06/06/10 documented as of this encounter
--- OUTSIDE RECORDS SUMMARY | 2024-03-09 12:24 | XMS_ITS | Encounter Summary ---
Author Organization [facility] Address [address] [place] [address] Care Team Providers Care Wrecker Driver Name Role Phone Unknown, Provider Primary Care Provider [phone] Encounter Details Date Type Department Care Team (Late st Contact Info) Description 08/08/2016 Results Only [facility] [phone] Beth Becker MD [address] [address] Social History Tobacco Use Types Packs/Day Years Used Date Smoking Tobacco: Never Assessed Sex and Gender Information Value Date Recorded Sex Assigned at Not on file Gender Identity Not on file Sexual Orientation Not on file documented as of this encounter Plan of Treatment Not on file documented as of this encounter Procedures Procedure Name Priority Date/Time Associated Diagnosis Comments PAP TEST- RESULT ONLY Routine 08/08/2016 0:00 EST documented in this encounter Results * PAP TEST- RESULT ONLY (08/08/2016 0:00 EST) Pathology Report: CYTOPATHOLOGY REPORT Reports generated via electronic interface contain original data; however they are lacking the format of the original report. Caution should be taken when reading/interpreti ng unformatted reports. Name: ? LAYLA ISAAC ? Accession #: ? [id number] ? : ? 1965 (Age: 51) ??F ?Collect Date: ? 08/08/2016 ? Location: ? [facility] ? Receive Date: ? 08/09/2016 ? Provider: BETH BECKER MD Copy to: ? Final Report SPECIMEN ADEQUACY ? Satisfactory for Evaluation - transformation zone component present GENERAL CATEGORIZATION ? Negative for Intraepithelial Lesion or Malignancy ?? Last Menstrual Period: Years ago Hormonal/Contracep tive status: None Specimen/Source: ??Pap Test, Cervix, ThinPrep Imaging System with manual evaluation Document reviewed and electronically signed by: ? MOON Colindres(ASCP) ? Report ??Date: 08/14/2016 15:36 HPV with Pap Test ? Date Ordered: ? 08/14/2016 ? Status: ?? Signed Out ?Date Complete: ? 08/15/2016 ? By: ??System Interface ? Date Reported: ? 08/15/2016 ? Interpretation RESULT: Negative for HPV. No E6 or E7 mRNA is detected from HPV types 16,18,31,33,35, 39,45,51,52,56,58, 59,66, and 68 by advertisement distributor mediated amplification. Comments Document reviewed and electronically signed by: ? System Interface ? Report date: 08/15/2016 By the signature above, the attending physician certifies that he/she has personally conducted a gross and/or microscopic examination of the described specimens and rendered or confirmed the above diagnosis. End of Report [facility] 08/08/2016 08/09/2016 Beth Becker MD PATHOLOGY ORDERABLES [facility] [address] [place] [address] documented in this encounter Visit Diagnoses Not on filedocumented in this encounter Care Teams Wrecker Driver Relationship Specialty Start Date End Date Unknown, Provider, PCP - General 05/22/15 documented as of this encounter
--- OUTSIDE RECORDS SUMMARY | 2024-03-09 12:24 | XMS_ITS | Encounter Summary ---
Author Organization [facility] Address [address] [place] [address] Care Team Providers Care Bench Lay Out Technician Name Role Phone Unavailable Primary Care Provider Unavailabl e Encounter Details Date Type Department Care Team (Late st Contact Info) Description 03/22/2003 Results Only [facility] - Maple conversion [address] [place] [address] Beth Becker MD [address] [address] Social History Tobacco Use Types [...] Priority Date/Time Associated Diagnosis Comments CYTOPATHOLOGY Routine 03/22/2003 0:00 EDT documented in this encounter Results * CYTOPATHOLOGY (03/22/2003 0:00 EDT) Pathology Report: CYTOPATHOLOGY REPORT Reports generated via electronic interface contain original data; however they are lacking the format of the original report. Caution should be taken when reading/interpreti ng unformatted reports. Name: ? LAYLA ISAAC ? Accession #: ? [id number] : ? 1965 (Age: 38) ??F ?Collect Date: ? 03/22/2003 Location: ? [facility] ? Receive Date: ? 03/24/2003 Provider: ?BETH BECKER MD Copy to: ? Specimen/Source: ?ThinPrep Pap Test, Cervix/Endocervix Last Menstrual Period: ? 03/07/03 Other: ? HPVA - HPV testing requested if ASC-US on the current ThinPrep Pap test. ? SPECIMEN ADEQUACY ? Unsatisfactory for Evaluation, - insufficient numbers of squamous epithelial cells (less than 10% of expected cellularity) GENERAL CATEGORIZATION ? Specimen processed and examined, but unsatisfactory for evaluation of epithelial abnormality. Recommend repeat Pap test or further follow up, as clinically indicated. ? Document reviewed and electronically signed by: ? MOON Colindres(ASCP) ? Report Date: ??03/26/2003 13:53 End of Report [facility] 03/22/2003 03/24/2003 Beth Becker MD PATHOLOGY ORDERABLES [facility] [address] [place] [address] documented in this encounter Visit Diagnoses Not on filedocumented in this encounter
--- OUTSIDE RECORDS SUMMARY | 2024-03-09 12:24 | XMS_ITS | Encounter Summary ---
Author Organization [facility] Address [address] [place] [address] Care Team Providers Care Burlap Man Name Role Phone Unknown, Provider Primary Care Provider Encounter Details Date Type Department Care Team (Late st Contact Info) Description 09/27/2021 Lab Requisition [facility] Pathology & Laboratory Medicine - [facility] [address], [place] [id number] Outr Resulting Lab, Provider Social History Tobacco Use Types Packs/Day Years Used Date Smoking Tobacco: Never Assessed Sex and Gender Information Value Date Recorded Sex Assigned at Not on file Gender Identity Not on file Sexual Orientation Not on file documented as of this encounter Plan of Treatment Not on file documented as of this encounter Procedures Procedure Name Priority Date/Time Associated Diagnosis Comments HIV 1/2 ANTIGEN AND ANTIBODY, 4TH GENERATION Routine 09/27/2021 9:30 EDT documented in this encounter Results * HIV 1/2 ANTIGEN AND ANTIBODY, 4TH GENERATION (09/27/2021 9:30 EDT) HIV 1 and 2 Antibody/p24 Antigen, 4th Generation Negative Negative 09/28/2021 9:53 EDT [facility] Comment:If acute HIV-1 infec tion is suspected in a high risk patient, submit plasma specimen for HIV-1 RNA quantitation test. Blood VENOUS BLOOD / Unknown 09/27/2021 9:30 EDT 09/27/2021 21:27 EDT Narrative [facility] - 09/28/2021 9:53 EDT Fourth Generation assay performed on the Siemens Ofidiumaur XPT. Provider Outr Resulting Lab IMMUNOLOGY A ND SEROLOGY ORDERABLES [facility] [address] [place] [address] documented in this encounter Visit Diagnoses Not on filedocumented in this encounter Care Teams Burlap Man Relationship Specialty Start Date End Date Unknown, Provider, PCP - General 05/22/15 documented as of this encounter
--- OUTSIDE RECORDS SUMMARY | 2024-03-09 12:24 | XMS_ITS | Encounter Summary ---
Author Organization [facility] [place] [address] Care Team Providers Care Reimbursement Analyst Name Role Phone Beth Villegas MD Primary Care Provider [phone] Encounter Details Date Type Department Care Team (Late st Contact Info) Description 01/05/2015 Telephone [place] [address] Zulay Landeros Social History Tobacco Use Types Packs/Day Years Used Date Smoking Tobacco: Never Smokeless Tobacco: Never Alcohol Use Standard Drinks/Week Comments Yes 0 (1 standard drink = 0.6 oz pur e alcohol) occasionally Sex and Gender Information Value Date Recorded Sex Assigned at Not on file Gender Identity Not on file Sexual Orientation Not on file documented as of this encounter Miscellaneous Notes * Telephone Encounter - Zulay Landeros - 01/05/2015 12:59 PM EDT Called patient to reschedule todays appointment as Dr. Cox is out. Left 2 messages at home number, tried Cell phone but it has no voice mail set up. documented in this encounter Plan of Treatment Not on file documented as of this encounter Visit Diagnoses Not on filedocumented in this encounter Care Teams Reimbursement Analyst Relationship Specialty Start Date End Date Beth Villegas MD [address] [place] [address] PCP - General 11/23/10 documented as of this encounter
--- OUTSIDE RECORDS SUMMARY | 2024-03-09 12:24 | XMS_ITS | Encounter Summary ---
[place] [address] Care Team Providers Care Disk And Tape Machine Tender Name Role Phone Beth Villegas MD Primary Care Provider [phone] Reason for Visit * Reason Comments Seborrheic Keratosis Encounter Details Date Type Department Care Team (Late st Contact Info) Description 08/30/2011 9:30 AM EST Office Visit Dermatology [address] [place] [address] [address] [place], [place] [id number] Minor Powell MD [address], [place] [address] Seborrheic keratosis (Primary Dx) Social History Tobacco Use Types Packs/Day Years Used Date Smoking Tobacco: Never Sex and Gender Information Value Date Recorded Sex Assigned at Not on file Gender Identity Not on file Sexual Orientation Not on file documented as of this encounter Progress Notes * Minor Powell MD - 08/30/2011 10:00 AM EST Problem: Right mid jaw line lesion. Layla is a 46-year-old who is works with [employer] who is referred today by Beth Villegas for a right mid jaw line seborrheic keratosis that has not responded to liquid nitrogen. Apparently it was treated and then it came back. Physical examination reveals a pleasant 46-year-old who has an 8mm waxy stuck on appearing probable seborrheic keratosis on the right mid jaw line. There is no erythema or induration of its base. The rest of the facial examination is unremarkable. Assessment & Plan: Seborrheic keratosis right mid jaw line. a. Discussed diagnosis. b. Discussed the propensity for recurrence. c. Recommended that we try shave biopsy and light electrodessication. The patient consented and the lesion was removed and submitted for pathologic analysis, triple antibiotic ointment and Band-Aid placed. d. RTC here p.r.n. for new lesions of concern. Copy: Beth Villegas MD Pathology Addendum per [facility] 09/04/11 : Verruca Vulgaris documented in this encounter Plan of Treatment Not on file documented as of this encounter Visit Diagnoses Diagnosis Seborrheic keratosis- Primary Other seborrheic keratosis documented in this encounter Care Teams Disk And Tape Machine Tender Relationship Specialty Start Date End Date Beth Villegas MD [address] [place] [address] PCP - General 06/06/10 documented as of this encounter
--- OUTSIDE RECORDS SUMMARY | 2024-03-09 12:24 | XMS_ITS | Clinical Summary ---
Author Organization [facility] Address [facility] [place] [address] Care Team Providers Care Glass Loading Equipment Tender Name Role Phone Beth Villegas MD Primary Care Provider [phone] Allergies Active Allergy Reactions Criticality Noted Date Comments Allergenic Extracts 04/04/2012 Dust Hydrocodone-Acetaminophen Itching 08/30/2011 Medications Medication Sig Dispensed Refills Start Date End Date Status naratriptan (AMERGE) 2.5 mg tablet Take 2.5 mg by mouth as needed. Take one (1) tablet at onset of headache; if returns or does not resolve, may repeat after 4 hours; do not exceed five (5) mg in 24 hours. Active omeprazole (PRILOSEC) 20 mg capsule Take 20 mg by mouth daily. Active MV,CA,MIN/FA/HERBAL NO.158 (ESTROVEN ENERGY ORAL) Take 1 capsule by mouth daily. Active FERROUS FUMARATE (IRON ORAL) Take 2 tablets by mouth daily. Active NAPROXEN ORAL Take 1-2 tablets by mouth as needed. Active fish oil-omega-3 fatty acids 1,000 mg Capsule Take 2 g by mouth daily. Active Magnesium 250 mg Tablet Take by mouth. Active fluocinolone acetonide (Synalar) 0.01 % Solution APPLY A SMALL AMOUNT TO SKIN ONCE A DAY 01/04/2022 Active ketoconazole (NIZORAL) 2 % Shampoo SHAMPOO WITH A SMALL AMOUNT TO THE SKIN ONCE A DAY 01/04/2022 Active LORazepam (Ativan) 0.5 mg Tablet TAKE ONE TABLET BY MOUTH ONE HOUR PRIOR TO MRI. MAY REPEAT ONCE. 10/12/2021 Active Myrbetriq 25 mg Tablet Sustained Release 24 hr Take 1 tablet by mouth daily. 01/04/2022 Active venlafaxine (EFFEXOR-XR) 150 mg Capsule, Sust. Release 24 hr 01/14/2022 Active azelastine (ASTELIN) 137 mcg (0.1 %) Aerosol, [place] 1 spray by Nasal route 2 times daily. Use in each nostril as directed 30 mL 12 04/17/2022 Active Additional Information Patient not taking.Reported on 01/14/2023 solifenacin (Vesicare) 5 mg tablet Take 5 mg by mouth daily. 01/03/2023 Active Active Problems Problem Noted Date Diagnosed Date Nevus 12/29/2012 Lumbar radiculopathy 04/04/2012 Obesity 04/04/2012 Seborrheic keratosis 08/30/2011 Family History Medical History Relation Comments Allergic Rhinitis Maternal Grandmother Diabetes Other Heart Disease Other Diabetes Paternal Grandfather Relation Status Comments Maternal Grandmother Other Paternal Grandfather Social History Tobacco Use Types Packs/Day Years Used Date Smoking Tobacco: Never Smokeless Tobacco: Never Alcohol Use Standard Drinks/Week Comments Yes 0 (1 standard drink = 0.6 oz pur e alcohol) occasionally Sex and Gender Information Value Date Recorded Sex Assigned at Not on file Gender Identity Not on file Sexual Orientation Not on file Last Filed Vital Signs Vital Sign Reading Time Taken Comments Blood Pressure 125/72 04/17/2022 2:56 PM EDT Pulse 84 04/17/2022 2:56 PM EDT Temperature - - Respiratory Rate - - Oxygen Saturation 97% 04/17/2022 2:56 PM EDT Inhaled Oxygen Concentration - - Weight 95.3 kg (210 lb) 01/14/2023 2:42 PM EDT Height 165.1 cm (5' 5) 01/14/2023 2:42 PM EDT Body Mass Index 34.95 01/14/2023 2:42 PM EDT Plan of Treatment Health Maintenance Due Date Last Done Comments CT Colonography 1965 Colonoscopy 1965 Colorectal Cancer Screening 1965 FIT DNA 1965 FIT 1965 Sigmoidoscopy (10 year) with FIT yearly 1965 Sigmoidoscopy 1965 HIV screen 02/17/1982 Hepatitis C Screening 02/17/1982 Lipid Screening 02/17/1982 Tdap adult 02/17/1983 Tetanus vaccine 02/17/1983 HPV test 02/17/1994 PAP Smear 02/17/1994 Breast Cancer Share Decision Needed 2004 Breast Cancer screening 2004 Diabetes Screening (HgbA1C or Glucose) 2004 Zoster vaccine (1 of 2) 02/17/2014 Advance Directive 02/17/2019 Covid-19 Vaccine (1 - season) 2023 Influenza (Flu) vaccine (1 o f 1 - Influenza standard series) 03/15/2024 Care Teams Glass Loading Equipment Tender Relationship Specialty Start Date End Date Beth Villegas MD [address] [place] [address] PCP - General 06/06/10
--- OUTSIDE RECORDS SUMMARY | 2024-03-09 12:24 | XMS_ITS | Encounter Summary ---
Author Organization [facility] Address [facility] [place] [address] Care Team Providers Care Customer Assistance Representative Name Role Phone Beth Villegas MD Primary Care Provider [phone] Encounter Details Date Type Department Care Team (Late st Contact Info) Description 04/17/2022 3:00 PM EDT [place] [address] Linda Noonan MD [facility] [address] [place] [address] Vasomotor rhinitis Social History Tobacco Use Types [...] EDT Inhaled Oxygen Concentration - - Weight - - Height - - Body Mass Index - - documented in this encounter Progress Notes * Linda Noonan MD - 04/17/2022 3:00 PM EDT CC: allergy testing HPI: Layla Isaac is a 57 y.o. female with PMH arthritis, fibromyalgia presenting for follow up allergy testing. Last seen 01/22/22. SKIN TESTING Histamine (7, 30) Glycerine (2, 3) Standard panel of 31 trees, grasses, weeds, molds, dust mite, cat, dog, mouse, cockroach, feather all negative. Standard environmental panel includes: dust mite p, dust mite f, cat, dog, AP dog, cockroach, mouse, mixed feather, alin, birch, cedar, elm, Dawson, maple tree, oak, pine, Weatherly, willow, orchard grass, Terrell grass, Benitez's quarter, mugwort, short ragweed, sheep Juvenal, plantain, Aspergillus fumigatus, Alternaria, penicillium, Cladosporium, Helminthosporium. ASSESSMENT/PLAN: 57 y.o. female with chronic rhinitis leading to PND and cough, with negative allergy testing today. Allergy testing: Patient had extensive panel of environmental allergy testing including dust mites,animals, trees, weeds, grasses, molds and this was all negative today. There is no evidence that environmental allergies are causing her rhinitis. She saw ENT at an outside location but is not interested in returning to them but would be open to a second opinion from a different ENT. Vasomotor rhinitis: Patient has never tried azelastine so I sent in a prescription for this which she can try up to 2 sprays in each nostril twice a day and see if she finds it beneficial. This is typically used for allergies but can also sometimes help patients with vasomotor rhinitis. If this is not helpful I recommend that she can get a second opinion from our ENT department here at [facility] see if she would be a candidate for other therapies such as sinus surgery, Coblation, Clarifix. She should get the referral through her primary care doctor if she is interested in pursuing this. Follow-up with PCP going forward Linda Noonan MD documented in this encounter Plan of Treatment Not on file documented as of this encounter Procedures Procedure Name Priority Date/Time Associated Diagnosis Comments ALLERGY SCAN 04/17/2022 12:00 AM EDT documented in this encounter Results * SCAN DOC: ALLERGY (04/17/2022 12:00 AM EDT) Narrative 04/17/2022 12:00 AM EDT Ordered by an unspecified provider. Scanning Provider MEDIA MGR SCAN EXT O RDR/RSLT documented in this encounter Visit Diagnoses Diagnosis Vasomotor rhinitis Allergic rhinitis, cause unspecified documented in this encounter Care Teams Customer Assistance Representative Relationship Specialty Start Date End Date Beth Villegas MD [address] [place] [address] PCP - General 06/06/10 documented as of this encounter
--- OUTSIDE RECORDS SUMMARY | 2024-03-09 12:24 | XMS_ITS | Encounter Summary ---
Author Organization [facility] Address [address] [place] [address] Care Team Providers Care Automotive Tire Tester Name Role Phone Unavailable Primary Care Provider Unavailabl e Encounter Details Date Type Department Care Team (Late st Contact Info) Description 06/15/2004 Results Only [facility] - [facility] [address] [place] [address] Beth Becker MD [address] [phone] Social History Tobacco Use Types [...] Priority Date/Time Associated Diagnosis Comments CYTOPATHOLOGY Routine 06/15/2004 0:00 EST documented in this encounter Results * CYTOPATHOLOGY (06/15/2004 0:00 EST) Pathology Report: CYTOPATHOLOGY REPORT Reports generated via electronic interface contain original data; however they are lacking the format of the original report. Caution should be taken when reading/interpreti ng unformatted reports. Name: ? LAYLA ISAAC ? Accession #: ? [id number] : ? 1965 (Age: 39) ??F ?Collect Date: ? 06/15/2004 Location: ? [facility] ? Receive Date: ? 06/19/2004 Provider: ?BETH BECKER MD Copy to: ? Specimen/Source: ?ThinPrep Pap Test, Cervix/Endocervix Last Menstrual Period: ? 06/12/04 Previous Gynecologic Pathology: ? Yes: H/O cervical polyp Other: ? HPVA - HPV testing requested if ASC-US on the current ThinPrep Pap test. ? SPECIMEN ADEQUACY ? Satisfactory for Evaluation - transformation zone component present GENERAL CATEGORIZATION ? Negative for Intraepithelial Lesion or Malignancy ? Document reviewed and electronically signed by: ? MOON Olivo(ASCP) ? Report Date: ??06/23/2004 08:37 End of Report PRABHU CHURCH 06/15/2004 06/19/2004 Beth Becker MD PATHOLOGY ORDERABLES PRAB[facility] CHURCH [address] [place] [address] documented in this encounter Visit Diagnoses Not on filedocumented in this encounter
--- OUTSIDE RECORDS SUMMARY | 2024-03-09 12:24 | XMS_ITS | Referral Summary ---
Author Organization [facility] Address [address] [place] [address] Care Team Providers Care Fork Lift Technician Name Role Phone Unknown, Provider Primary Care Provider [phone] Social History Tobacco Use Types Packs/Day Years Used Date Smoking Tobacco: Never Assessed Sex and Gender Information Value Date Recorded Sex Assigned at Not on file Gender Identity Not on file Sexual Orientation Not on file Plan of Treatment Not on file Care Teams Fork Lift Technician Relationship Specialty Start Date End Date Unknown, Provider, PCP - General 05/22/15
--- OUTSIDE RECORDS SUMMARY | 2024-03-09 12:24 | XMS_ITS | Encounter Summary ---
[place] [address] Care Team Providers Care Client Customer Manager Name Role Phone Beth Villegas MD Primary Care Provider [phone] Encounter Details Date Type Department Care Team (Latest Contact Info) Description 01/14/2023 Travel Social History Tobacco Use Types Packs/Day Years [...] on filedocumented in this encounter Care Teams Client Customer Manager Relationship Specialty Start Date End Date Beth Villegas MD [address] [place] [address] PCP - General 06/06/10 documented as of this encounter
--- OUTSIDE RECORDS SUMMARY | 2024-03-09 12:24 | XMS_ITS | Encounter Summary ---
Author Organization [facility] Address [address] [place] [address] Care Team Providers Care Police Artist Name Role Phone Unavailable Primary Care Provider Unavailabl e Encounter Details Date Type Department Care Team (Late st Contact Info) Description 08/11/2012 Results Only [facility] Laboratory Services - [facility] ([facility]) [address] [place] [address] Beth Becker MD [address] [facility] [address] [place] [phone] Social History Tobacco Use Types Packs/Day [...] Diagnosis Comments PAP TEST- RESULT ONLY Routine 08/11/2012 0:00 EST documented in this encounter Results * PAP TEST- RESULT ONLY (08/11/2012 0:00 EST) Pathology Report: CYTOPATHOLOGY REPORT Reports generated via electronic interface contain original data; however they are lacking the format of the original report. Caution should be taken when reading/interpreti ng unformatted reports. Name: ? LAYLA ISAAC ? Accession #: ? [id number] : ? 1965 (Age: 47) ??F ?Collect Date: ? 08/11/2012 Location: ? [facility] ? Receive Date: ? 08/12/2012 Provider: ?BETH BECKER MD Copy to: ? Specimen/Source: ?Pap Test, Cervix, ThinPrep Imaging System with manual evaluation Last Menstrual Period: ? SPECIMEN ADEQUACY ? Satisfactory for Evaluation - transformation zone component present GENERAL CATEGORIZATION ? Negative for Intraepithelial Lesion or Malignancy ? Document reviewed and electronically signed by: ? Joy Moreno, CT(ASCP)(IAC) ? Report Date: ??08/19/2012 11:12 End of Report PRABHU CHURCH 08/11/2012 08/12/2012 Beth Becker MD PATHOLOGY ORDERABLES PR[facility] CHURCH [address] [place] [address] documented in this encounter Visit Diagnoses Not on filedocumented in this encounter
--- OUTSIDE RECORDS SUMMARY | 2024-03-09 12:24 | XMS_ITS | Encounter Summary ---
Author Organization [facility] [place] [address] Care Team Providers Care Drain Tile Machine Operator Name Role Phone Beth Villegas MD Primary Care Provider [phone] Encounter Details Date Type Department Care Team (Late st Contact Info) Description 04/08/2012 External [place] [address] Sam Trejo MD [facility] [place] [address] Social History Tobacco Use Types Packs/Day Years [...] Procedure Name Priority Date/Time Associated Diagnosis Comments EMG SCAN Routine 04/04/2012 documented in this encounter Results * Scan Doc: EMG (04/04/2012) Sam Trejo MD MEDIA MGR SCAN EXT O RDR/RSLT documented in this encounter Visit Diagnoses Not on filedocumented in this encounter Care Teams Drain Tile Machine Operator Relationship Specialty Start Date End Date Beth Villegas MD [address] [place] [address] [address] [place] [address] PCP - General 06/06/10 documented as of this encounter
--- OUTSIDE RECORDS SUMMARY | 2024-03-09 12:24 | XMS_ITS | Encounter Summary ---
[place] [address] Care Team Providers Care Telecommunications Network Planner Name Role Phone Beth Villegas MD Primary Care Provider [phone] Reason for Visit * Reason Comments Skin Check Encounter Details Date Type Department Care Team (Late st Contact Info) Description 12/29/2012 8:00 AM EDT Office Visit Dermatology [address] [facility] [address] [place], [place] [id number] Minor Powell MD [address] [address] Nevus (Primary Dx) Social History Tobacco Use Types [...] Progress Notes * Minor Powell MD - 12/29/2012 8:30 AM EDT Problem List: Right thigh lesion Layla is a 47-year-old woman who is referred today by Dr. Nicole for evaluation of an atypical nevus on the right anterior thigh. Patient has not noticed this herself. It came up during a recent fibromyalgia evaluation by Dr. Nicole. She also has a bothersome mole on the right upper back that is often rubbed and irritated, and bleeds if she scratches it. Physical examination reveals a starburst, light brown and dark brown, nevus, 3 mm in diameter, on the right anterior thigh. It is junctional. There are on both anterior thighs, right more than left, several mildly atypical junctional melanocytic nevi that share two-tone color and mild atypicality of the margins. However, examination of the anterior thighs, calves, backs of the calves, hands, arms, face, upper back, suggest that these actually are her signature nevi and show a pattern that is repeated elsewhere. They appeared benign by the ABC criteria. Additionally, she does have a hemangioma on the right upper back, 6 mm in diameter. Assessment and Plan: 1. Mildly atypical signature melanocytic junctional nevus, right anterior thigh. a. Patient reassured about this. b. Will not have any impact on her starting therapy for fibromyalgia. 2. Hemangioma, right upper back. a. After obtaining informed consent, at patient request, this site was anesthetized and electrodesiccated. b. Triple antibiotic ointment and Band-Aid placed. c. Wound care instructions and supplies given. d. Return to clinic here p.r.n. COPY: Sonja Deshpande M.D. documented in this encounter Plan of Treatment Not on file documented as of this encounter Visit Diagnoses Diagnosis Nevus- Primary Benign neoplasm of skin, site unspecified documented in this encounter Care Teams Telecommunications Network Planner Relationship Specialty Start Date End Date Beth Villegas MD [address] [place] [address] PCP - General 06/06/10 documented as of this encounter
--- OUTSIDE RECORDS SUMMARY | 2024-03-09 12:24 | XMS_ITS | Encounter Summary ---
Author Organization [facility] Address [address] [place] [address] Care Team Providers Care Senior Db2 Systems Programmer Name Role Phone Unavailable Primary Care Provider Unavailabl e Encounter Details Date Type Department Care Team (Late st Contact Info) Description 07/01/2009 Orders Only [facility] Laboratory Services - [facility] ([facility]) [address] [place] [address] Beth Becker MD [address] [place] [phone] Social History Tobacco Use Types Packs/Day Years Used Date Smoking Tobacco: Never Assessed Sex and Gender Information Value Date Recorded Sex Assigned at Not on file Gender Identity Not on file Sexual Orientation Not on file documented as of this encounter Plan of Treatment Not on file documented as of this encounter Procedures Procedure Name Priority Date/Time Associated Diagnosis Comments CYTOPATHOLOGY Routine 07/01/2009 0:00 EST documented in this encounter Results * CYTOPATHOLOGY (07/01/2009 0:00 EST) Pathology Report: CYTOPATHOLOGY REPORT ? Reports generated via electronic interface contain original data; ? however they are lacking the format of the original report. ? Caution should be taken when reading/interpreti ng unformatted reports. ? Name: ? LAYLA ISAAC ? Accession #: ? [id number] ? : ? 1965 (Age: 44) ??F ?Collect Date: ? 07/01/2009 ? Location: ? [facility] ? Receive Date: ? 07/05/2009 ? Provider: ?BETH BECKER MD ? Copy to: ? Specimen/Source: ?Pap Test, Cervix/Endocervix, ThinPrep Imaging System ? with manual evaluation ? Last Menstrual Period: ? 11/09 ? Other: ? HPVA - HPV testing requested if ASC-US on the current ThinPrep Pap test. ? SPECIMEN ADEQUACY ? Satisfactory for Evaluation ? - transformation zone component present ? GENERAL CATEGORIZATION ? Negative for Intraepithelial Lesion or Malignancy ? Document reviewed and electronically signed by: ? Heavenly Attalla, CT(ASCP) ? Report Date: ??07/06/2009 09:58 ? End of Report ? PRABHU CHURCH 07/01/2009 07/05/2009 Beth Becker MD PATHOLOGY ORDERABLES PRABHU CHURCH [address] [place] [address] documented in this encounter Visit Diagnoses Not on filedocumented in this encounter
--- OUTSIDE RECORDS SUMMARY | 2024-03-09 12:24 | XMS_ITS | Encounter Summary ---
Author Organization [facility] Address [facility] [place] [address] Care Team Providers Care Pay Clerk Name Role Phone Beth Villegas MD Primary Care Provider [phone] Reason for Visit * Reason Comments Other Congested a lot. Has seen one md who said she had a lot of allergies and was later told by another she had no allergies. Raspy and clearing throat often. * Consultation (Routine) - Closed Specialty Diagnoses / Procedures Referred By Noel herrmann Referred To Contact Otolaryngology Diagnoses Chronic cough Vasomotor rhinitis Beth Villegas MD [address] [place] [address] [facility] [address] [place] [address] [facility] Otolaryngology [address] [place] [id number] Referral ID Status Reason Start Date Expiration Date V isits Requested Visits Authorized [id number] Closed Consult, Test & Treat PCP Updated and/or Approved 06/01/2022 06/01/2023 6 6 Encounter Details Date Type Department Care Team (Late st Contact Info) Description 01/14/2023 2:45 PM EDT Office [place] [address] Lm Castanon PA [facility] [place] [address] Nasal congestion; Environmental allergies Social History Tobacco Use Types Packs/Day Years [...] Sign Reading Time Taken Comments Blood Pressure - - Pulse - - Temperature - - Respiratory Rate - - Oxygen Saturation - - Inhaled Oxygen Concentration - - Weight 95.3 kg (210 lb) 01/14/2023 2:42 PM EDT Height 165.1 cm (5' 5) 01/14/2023 2:42 PM EDT Body Mass Index 34.95 01/14/2023 2:42 PM EDT documented in this encounter Progress Notes * Lm Castanon PA - 01/14/2023 2:45 PM EDT [facility] [place] [place] OT[place] NEW PATIENT CONSULTATION I was asked to see Layla Isaac in consultation by Beth Villegas for nasal congestion. History was obtained through review of the relevant records, discussion with referring physician and/or patient interview. History of present illness: This is a 57 y.o. female Had allergy testing with Dr. Mart. She was told that she had multiple allergies, and should have shots. Came here and was told had no allergies. Symptoms: Nasal congestion. Lots of mucous/post nasal drip. Some associated cough/throat clearing. Hoarseness, worse at night. Has been going on for 2-3 years. Notes lots of sneezing, especially at work. Some itchy eyes. Notes itchy ear, too. Often wakes up very congested in the middle of the night, especially on the right. Also notes she can' hear well out of her left ear for about 6 years, gradual change. Was diagnosed with otosclerosis on that side. Works in a [employer] company. 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 No history of trauma to the nose. No epistaxis. No dysphagia. Does feel PND with this, though. Has xerostomia. Did try astelin for 3 weeks, but couldn't tolerate the burning sensation. Was on flonase for a long time, but stopped prior to seeing the exhibit specialist. Ddi not note a difference after stopping. PROBLEM LIST Patient Active Problem List Diagnosis Code Seborrheic keratosis L82.1 Lumbar radiculopathy M54.16 Obesity E66.9 Nevus D22.9 PAST MEDICAL HISTORY Past Medical History: Diagnosis Date Depression Fibromyalgia Hearing loss SOCIAL HISTORY Social History Tobacco Use Smoking status: Never Smokeless tobacco: Never Substance Use Topics Alcohol use: Yes Comment: occasionally MEDICATIONS Current Outpatient Medications on File Prior to Visit Medication Sig Dispense Refill azelastine (ASTELIN) 137 mcg (0.1 %) Aerosol, [place] 1 spray by Nasal route 2 times daily. Use in each nostril as directed 30 mL 12 fluocinolone acetonide (Synalar) 0.01 % Solution APPLY A SMALL AMOUNT TO SKIN ONCE A DAY ketoconazole (NIZORAL) 2 % Shampoo SHAMPOO WITH A SMALL AMOUNT TO THE SKIN ONCE A DAY LORazepam (Ativan) 0.5 mg Tablet TAKE ONE TABLET BY MOUTH ONE HOUR PRIOR TO MRI. MAY REPEAT ONCE. Myrbetriq 25 mg Tablet Sustained Release 24 hr Take 1 tablet by mouth daily. venlafaxine (EFFEXOR-XR) 150 mg Capsule, Sust. Release 24 hr fish oil-omega-3 fatty acids 1,000 mg Capsule Take 2 g by mouth daily. Magnesium 250 mg Tablet Take by mouth. MV,CA,MIN/FA/HERBAL NO.158 (ESTROVEN ENERGY ORAL) Take 1 capsule by mouth daily. FERROUS FUMARATE (IRON ORAL) Take 2 tablets by mouth daily. NAPROXEN ORAL Take 1-2 tablets by mouth as needed. naratriptan (AMERGE) 2.5 mg tablet Take 2.5 mg by mouth as needed. Take one (1) tablet at onset of headache; if returns or does not resolve, may repeat after 4 hours; do not exceed five (5) mg in 24 hours. omeprazole (PRILOSEC) 20 mg capsule Take 20 mg by mouth daily. No current facility-administered medications on file prior to visit. ALLERGIES Allergies Allergen Reactions Allergenic Extracts Dust Vicodin [Hydrocodone-Acetaminophen] Itching ROS 8 point Review of Systems was normal except for pertinent positives and negatives included in the History of Present Illness. PHYSICAL EXAMINATION Physical Examination: VITALS - There were no vitals taken for this visit. GENERAL - Well dressed and well nourished. - Breathing comfortably without stridor. - No acute distress. FACE - Full and symmetric facial movement. - No dysmorphic facial features. EYES - Periocular structures and conjunctiva healthy without lesions. - Pupils are equal, round, and reactive to light. - Extraocular movement is full and intact. - No evidence of nystagmus. NOSE - Patent anteriorly with adequate airflow, healthy pink mucosa. - Septum is midline without significant deviation. - Inferior turbinates normal exam. MOUTH - Lips and gingiva pink, moist, without lesions. - Gums/dentition healthy. - Tongue and floor of mouth soft without lesions or masses. - Hard palate without lesions. PHARYNX - Soft palate without lesions. - Uvula is midline. - Oropharynx symmetric. NECK - Soft, supple, without significant lymphadenopathy. - Thyroid gland without masses or asymmetry. - Trachea midline without deviation. NEURO - Cranial nerves II-XII intact and symmetric. - Responds appropriately to questions. PSYCHE - Normal mood and affect. PROCEDURES Procedure: Flexible Laryngoscopy: Patient declined study. REVIEW OF IMAGES/STUDIES ASSESSMENT/RECOMMENDATIONS Layla Isaac is a 57 y.o. female with the above-noted history and clinical exam findings. - Discussed trial of normal saline use, 2 sprays on each side, 2 times per day, for the next month.Discussed her reaching out to me at that point to see if her symptoms were improved, and that we could discuss measures to take depending on her response. - The patient expressed understanding of these points and agreement with the plan, and all questions that were asked were answered to the patient's satisfaction. Plan: > Normal saline spray use as above. > Patient should call if their symptoms worsen or fail to improve, if new concerning symptoms arise, or if they have any questions or concerns regarding their treatment. I appreciate the opportunity to be involved in Ms. Isaac's care. Lm Castanon PA-C [place], [place] [phone] Office 01/13/2023 documented in this encounter Plan of Treatment Not on file documented as of this encounter Visit Diagnoses Diagnosis Nasal congestion Other diseases of nasal cavity and sinuses Environmental allergies Allergic rhinitis, cause unspecified documented in this encounter Care Teams Pay Clerk Relationship Specialty Start Date End Date Beth Villegas MD [address] [facility] [address] [place] [address] PCP - General 06/06/10 documented as of this encounter
--- OUTSIDE RECORDS SUMMARY | 2024-03-09 12:24 | XMS_ITS | Encounter Summary ---
[facility] [place] [address] Care Team Providers Care Information Analyst Name Role Phone Beth Villegas MD Primary Care Provider [phone] Encounter Details Date Type Department Care Team (Latest Contact Info) Description 04/04/2012 1:45 PM EDT Office [place] [address] Sam Trejo MD [facility] [place] [address] Radiculopathy of lumbar region (Primary Dx) Discharge Disposition: Home Social History Tobacco Use [...] Sign Reading Time Taken Comments Blood Pressure 129/82 04/04/2012 1:59 PM EDT Pulse 97 04/04/2012 1:59 PM EDT Temperature - - Respiratory Rate - - Oxygen Saturation - - Inhaled Oxygen Concentration - - Weight 89.8 kg (198 lb) 04/04/2012 1:59 PM EDT Height 165.1 cm (5' 5) 04/04/2012 1:59 PM EDT Body Mass Index 32.95 04/04/2012 1:59 PM EDT documented in this encounter Progress Notes * Sam Trejo MD - 04/04/2012 2:43 PM EDT Layla Isaac is a 47-year-old female referred for electrodiagnostic studies in consultation by Santa Nayak A.P.R.N., and Dr. Beth Villegas for evaluation of lumbar radiculopathy. 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 Since the injury, she has had back pain radiating into her right leg and was found on an MRI apparently to have a herniated disk, although the films and reports are not available today. She has been going for physical therapy three times a week over the last six months and prior to that was trying chiropractory. She tried Lyrica, which did not help and made her feel loopy. She has not tried gabapentin, but she is supposed to start Cymbalta today. She denies any bowel or bladder dysfunction. She has some tingling in her right leg intermittently. Her family history is noncontributory. On exam, she is a large, pleasant female who looks reasonably comfortable. She was bright and alert with no mental status issues. Cranial nerves II through XII were intact. Her reflexes were normal and symmetric throughout with no signs of myelopathy. Her toes are downgoing. Sensory exam was intact. She had no focal weakness or atrophy. Tone was normal in all four extremities. Gait and stance were normal. She underwent electrical studies in the right lower extremity. The nerve conduction studies and EMG were all normal. There is no objective evidence of radiculopathy in this patient, although by description it certainly sounds like she does have radiculopathy. Perhaps she has an irritated nerve root. I think that conservative management is appropriate for this patient, including ongoing physical therapy, osteopathic intervention, or possibly acupuncture. A trial of Cymbalta is about to be started. All of her questions were answered. Thank you for this consultation. documented in this encounter Plan of Treatment Not on file documented as of this encounter Visit Diagnoses Diagnosis Radiculopathy of lumbar region- Primary Thoracic or lumbosacral neuritis or radiculitis, unspecified documented in this encounter Care Teams Information Analyst Relationship Specialty Start Date End Date Beth Villegas MD [address] [facility] [address] [place] [address] PCP - General 06/06/10 documented as of this encounter
--- OUTSIDE RECORDS SUMMARY | 2024-03-09 12:24 | XMS_ITS | Encounter Summary ---
Author Organization [facility] Address [address] [place] [address] Care Team Providers Care Commissary Officer Name Role Phone Unknown, Provider Primary Care Provider Encounter Details Date Type Department Care Team (Latest Contact Info) Description 01/04/2021 Lab Requisition [facility] Pathology & Laboratory Medicine - [facility] [address], [place] [id number] Beth Villegas MD [address] [place] [phone] Encounter for general adult medical examination without abnormal findings; Encounter for screening for malignant neoplasm of cervix; Encounter for screening for human papillomavirus (HPV) Social History Tobacco Use Types Packs/Day Years Used Date Smoking Tobacco: Never Assessed Sex and Gender Information Value Date Recorded Sex Assigned at Not on file Gender Identity Not on file Sexual Orientation Not on file documented as of this encounter Plan of Treatment Not on file documented as of this encounter Procedures Procedure Name Priority Date/Time Associated Diagnosis Comments PAP TEST Today 01/02/2021 16:00 EDT Encounter for general adult medical examination without abnormal findings Encounter for screening for malignant neoplasm of cervix Encounter for screening for human papillomavirus (HPV) HPV DNA DETECTION WITH GENOTYPING, PCR Today 01/02/2021 16:00 EDT Encounter for general adult medical examination without abnormal findings Encounter for screening for malignant neoplasm of cervix Encounter for screening for human papillomavirus (HPV) documented in this encounter Results * HUMAN PAPILLOMAVIRUS (HPV) DETECTION-HIGH RISK TYPES (01/02/2021 16:00 EDT) HPV other High Risk types, PCR Negative Negative 01/15/2021 14:15 EDT [facility] Comment:No E6 or E7 mRNA is detected from HPV types 16,18,31,33,35,39,45,51,52,56,58,59,66, and 68 by inside barrel lathe operator mediated amplification. Papanicolaou smear specimen (specimen) CERVIX UTERI STRUCTURE / Unknown 01/02/2021 16:00 EDT 01/12/2021 16:17 EDT Beth Villegas MD MICROBIOLOGY - GENER AL ORDERABLES [facility] [address] [place] [address] * PAP TEST (01/02/2021 16:00 EDT) Specimens A. Cervix and/or Endocervix , ThinPrep Imaging System with Manual Evaluation 01/15/2021 14:16 [facility] Specimen Adequacy Satisfactory for Evaluation - transformation zone component present 01/15/2021 14:16 [facility] General Categorization Negative for intraepithelial lesion or malignancy 01/15/2021 14:16 [facility] Attestation . 01/15/2021 14:16 [facility] at 1415 Clinical History See below 01/16/20 14:16 [facility] HPV The result for the Human Papillomavirus (HPV) Detection-High Risk Types is Negative. No E6 or E7 mRNA is detected from HPV types 16,18,31,33,35,39 ,45,51,52,56,58,5 9,66, and 68 by inside barrel lathe operator mediated amplification.Nehal ting was performed on specimen [id number] and was resulted on 01/14/2021 2304 EDT by YAZ, LAB INSTRUMENT RESULTS IN 01/15/2021 14:16 [facility] Performing Lab [facility] 01/15/2021 14:16 [facility] Scanned Images 01/15/2021 14:16 EDT [facility] Papanicolaou smear specimen (specimen) CERVIX UTERI STRUCTURE / Unknown 01/02/2021 16:00 EDT 01/04/2021 12:27 EDT Beth Villegas MD PATHOLOGY ORDERABLES Performing Organization Address City/State/[facility] Co de Phone Number [facility] [address] [place] [address] documented in this encounter Visit Diagnoses Diagnosis Encounter for general adult medical examination without abnormal findings Unspecified general medical examination Encounter for screening for malignant neoplasm of cervix Screening for malignant neoplasm of the cervix Encounter for screening for human papillomavirus (HPV) Special screening examination for human papillomavirus (HPV) documented in this encounter Care Teams Commissary Officer Relationship Specialty Start Date End Date Unknown, Provider, PCP - General 05/22/15 documented as of this encounter
--- OUTSIDE RECORDS SUMMARY | 2024-03-09 12:24 | XMS_ITS | Clinical Summary ---
Author Organization [facility] Address [address] [place] [address] Care Team Providers Care Sales Receptionist Name Role Phone Unknown, Provider Primary Care Provider [phone] Social History Tobacco Use Types Packs/Day Years Used Date Smoking Tobacco: Never Assessed Sex and Gender Information Value Date Recorded Sex Assigned at Not on file Gender Identity Not on file Sexual Orientation Not on file Plan of Treatment Health Maintenance Due Date Last Done Comments Hepatitis C Screen 1965 COVID-19 Vaccine (2022-24 season) 2023 RSV Immunization ( o r 60+ Years) (1 - 1-dose 60+ series) 2024 Care Teams Sales Receptionist Relationship Specialty Start Date End Date Unknown, Provider, PCP - General 05/22/15
[2024-03-09 16:07] LABS: BUN 18 mg/dL (7-18); Calcium 9.3 mg/dL (8.5-10.1); Chloride 104 mmol/L (98-107); Estimated GFR 64.49 (mL/min/1.73m2); Glucose 78 mg/dL (74-106); Potassium 3.8 mmol/L (3.5-5.1); Sodium 141 mmol/L (136-145)
== END 2024-03-09 12:17 | disposition home or self-care (01) ==
LOC: NCHCN 12:16
PROVIDERS: PCP Family Medicine; Visit Provider Family Medicine
DX: N18.30 Chronic kidney disease, stage 3 unspecified (principal); Z13.1 Encounter for screening for diabetes mellitus
CPT/HCPCS: 80048; 83036

== ENCOUNTER 2024-03-30 02:48 | Outpatient (CLI) | payer OTHER, SELFPAY ==
--- NOTE | 2024-03-30 | DI.MAMMO_ITS ---
Exam(s) MAMMO SCREENING EXAM: MAMMO SCREENING CLINICAL HISTORY: Screening. TECHNIQUE: Bilateral full field digital CC and MLO mammographic images were obtained with 3D tomosyn thesis and utilizing computer aided detection (CAD). COMPARISON: Prior mammograms dating back to 2016 were reviewed. FINDINGS: There has been no significant change in the appearance and distribution of the fibroglandular tissue. Asymmetric density anteriorly in the breast remains unchanged from 2016 Stable calcifications in the upper-outer quadrant of the left breast are also unchanged 2016 There are no new spiculated masses nor new malignant appearing microcalcification groups. There is no significant architectural distortion nor skin thickening-retraction. IMPRESSION: No radiographic evidence of malignancy. Stable benign findings. BI-RADS Category 2 - Benign Findings Breast Density - Category B - Scattered areas of fibroglandular density Breast density Category C or D implies that the patient has dense breast tissue. Dense breast tissue can make it harder to find cancer on a mammogram. Dense breast tissue is also associated with an incr eased risk of breast cancer. This information about the result of the mammogram report was provided to the patient to raise their awareness. Use this report when you speak with the patient about their risks for breast cancer, which includes their family history. At that time, you may recommend additional screening tests (Ultrasoun d or MRI) as these tests may add significant information. A negative radiographic report should not delay biopsy if a dominant or clinically suspicious mass is present. Up to ten percent of cancers are not identified on mammography. A negative report may reinforce clinical impression. Adenosis and dense breasts may obscure an underlying neoplasm. False positive reports average 6 to 10%. Patient will receive a letter notifying them of these results.
== END 2024-03-30 03:08 ==
LOC: DI 02:48
PROVIDERS: PCP Family Medicine; Visit Provider Family Medicine
DX: Z12.31 Encounter for screening mammogram for malignant neoplasm of breast (principal)
CPT/HCPCS: 77063; 77067

== ENCOUNTER 2024-12-02 03:02 | Outpatient (CLI) | payer OTHER, SELFPAY ==
[2024-12-02 12:19] LABS: HCT 42.5 % (36.0-46.0); HGB 13.5 g/dL (11.2-15.7); MCH 28.8 pg (27.0-33.0); MCHC 31.8 % (32.0-36.0); MCV 91 fL (80-95); Platelet Count 215 10^3/uL (130-400); RBC 4.69 10^6/uL (3.93-5.22); RDW-SD 42.6 fL; WBC 6.51 10^3/uL (4.4-10.8)
[2024-12-02 12:37] LABS: ALT 21 U/L (14-59); AST 18 U/L (15-37); Albumin 3.8 g/dL (3.4-5.0); Alkaline Phosphatase 69 U/L (46-116); BUN 20 mg/dL (7-18); Bilirubin, Total 0.4 mg/dL (0.2-1.0); CREATININE 1.1 mg/dL (0.55-1.02); Calcium 9.7 mg/dL (8.5-10.1); Chloride 104 mmol/L (98-107); Estimated GFR 57.52 (mL/min/1.73m2); Glucose 97 mg/dL (74-106); Potassium 3.9 mmol/L (3.5-5.1); Sodium 139 mmol/L (136-145); TSH (W/Ref FT4) 1.42 uIU/mL (0.36-3.74); Total Protein 7.6 g/dL (6.4-8.2)
[2024-12-02 12:44] LABS: Hemoglobin A1C 5.9 % (<5.7)
[2024-12-03 07:33] LABS: IgA 181 mg/dL (85-499)
[2024-12-03 10:14] LABS: Tissue Transglutaminase IgA <4.0 CU (<20.0)
== END 2024-12-02 03:03 | disposition home or self-care (01) ==
PROVIDERS: PCP Family Medicine; Visit Provider Family Medicine
DX: R14.0 Abdominal distension (gaseous) (principal); R73.03 Prediabetes; R53.83 Other fatigue
CPT/HCPCS: 36415; 80053; 82784; 85027; 83036; 84443

== ENCOUNTER → 2025-05-28 11:26 | Outpatient (CLI) | payer OTHER, SELFPAY ==
--- NOTE | 2025-05-28 | DI.RAD_ITS ---
Exam(s) XR KNEE RT 3V AP,LAT,CAR EXAM: XR KNEE RT 3V AP,LAT,CAR CLINICAL HISTORY: RT KNEE PAIN,EFFUSION M25.561,M25.461. TECHNIQUE: 2D digital imaging was performed. COMPARISON: No exams were available for comparison FINDINGS: 3 views No evidence of acute fracture. Small joint effusion noted. There is no significant joint space narrowing. Chondrocalcinosis is noted in the medial and lateral compartments within the menisci. There appears to be some meniscal extrusion. Bone density normal. No osseous lesions. IMPRESSION: Subtle findings as above. Suspect meniscal tear. Recommend MRI. DATA REPOSITORY: RADIATION DOSE DELIVERED:
== END ==
PROVIDERS: PCP Family Medicine; Visit Provider Family Medicine
DX: M25.461 Effusion, right knee (principal); M25.561 Pain in right knee
CPT/HCPCS: 73562

== ENCOUNTER 2025-05-28 12:23 | Outpatient (REF) | payer OTHER, SELFPAY ==
[2025-05-28 21:03] LABS: ESR 11 mm/hr (0-30)
[2025-05-28 21:19] LABS: Uric Acid 5.4 mg/dL (3.1-7.8)
[2025-05-28 21:36] LABS: C-Reactive Protein < 0.50 mg/dL (<=0.50)
[2025-05-31 11:08] LABS: Lyme Ab w Rflx to Lyme Confirm Negative (Negative)
== END 2025-05-28 12:24 | disposition home or self-care (01) ==
LOC: NCHCN 12:23
PROVIDERS: PCP Family Medicine; Visit Provider Family Medicine
DX: M25.461 Effusion, right knee (principal); M25.561 Pain in right knee
CPT/HCPCS: 85652; 86200; 84550; 86038; 86140; 86431; 86618

== ENCOUNTER → 2025-07-09 00:01 | Outpatient (CLI) | payer OTHER, SELFPAY ==
--- NOTE | 2025-07-09 | DI.MRI_ITS ---
Exam(s) MR LOWER JOINT RT WO EXAM: MR LOWER JOINT RT WO CLINICAL HISTORY: EFFUSION RT KNEE M25.461 PAIN RT KNEE M25.561 TECHNIQUE: Multiplanar multisequence MRI of the knee was performed. COMPARISON: CR XR KNEE RT 3V AP,LAT,CAR from 05/28/2025 FINDINGS: EFFUSION: There is a moderate-large knee joint effusion. There is no Isaac cyst in the popliteal fossa. MARROW:There is no evidence of fracture, bone contusion, nor osteochondral defects.. There are no significant osseous lesions. PATELLOFEMORAL COMPARTMENT: There is moderate thinning of the retropatellar cartilage over the lateral facet. No subarticular edema evident in the subjacent posterior patella.There is no intraosseous signal to suggest recent patellar dislocation. There are no patellar retinacular tears. CRUCIATE LIGAMENTS: The anterior cruciate ligament is intact.The posterior cruciate ligament is intact. MEDIAL COMPARTMENT/MEDIAL MENISCUS: There is superior surface tear in the posterior horn of the medial meniscus. There is also an oblique tear in the outer 3rd of the posterior horn and mild meniscal extrusion at this level. No significant meniscal capsular separation.The anterior horn of the medial meniscus appears intact. There is some thinning of the articular cartilage over the main weight-bearing surface of the medial femoral condyle. There is no associated subarticular bone edema. There are no osteochondral defects. No significant osteophytes. MEDIAL COLLATERAL LIGAMENT: Intact LATERAL COMPARTMENT/LATERAL MENISCUS: There is signal abnormality in the posterior horn of the lateral meniscus which reaches the inferior articular surface on 2 consecutive sagittal images and therefore consistent with a tear. There is myxoid degeneration signal in the anterior horn of the lateral me niscus.There are no chondral defects, osteochondral defects, subarticular marrow edema, nor osteophytes evident. ILIOTIBIAL BAND: Intact LATERAL COLLATERAL LIGAMENT COMPLEX: The fibular collateral ligament is intact. The biceps femoris tendon is intact.Popliteus muscle and tendon are intact. IMPRESSION: 1. There are tears of the posterior horn of the medial meniscus as described above. 2. There is also a tear in the posterior horn of the lateral meniscus. 3. There are no cruciate nor collateral ligament tears. 4. Mild-moderate cartilage loss in the medial compartment over the weight- bearing surface of the medial femoral condyle. Minimal cartilage thinning in the lateral compartment. Moderate thinning of the retropatellar cartilage over the lateral facet. 5. There is significant joint effusion. No obvious loose intra-articular bodies. DATA REPOSITORY:
== END ==
LOC: DI 00:02
PROVIDERS: PCP Family Medicine; Visit Provider Family Medicine
DX: M25.461 Effusion, right knee (principal)
CPT/HCPCS: 73721